=== PATIENT | female | born 1940 | race Caucasian/White ===

== ENCOUNTER 2019-03-27 13:10 | Observation (INO) | payer OTHER ==
[2019-03-27] MEDS ORDERED: ONDANSETRON 4 MG/2 ML VIAL ONE (14:07)
[2019-03-27 14:10] LABS: Absolute Lymphocytes (CBC) 0.6 K/uL (0.7-4.9); Basophils % 0.4 % (0-1.3); Hematocrit 32.4 % (36.0-45.0); Lymphocytes % 9.8 % (15.3-44.8); MPV 6.5 fL (7.6-11.3); RBC Red Blood Cell Count 3.58 M/uL (3.86-4.86)
--- NOTE | 2019-03-27 14:10 | RAD REPORT ---
EXAM DESCRIPTION: RAD - Chest Single View - 03/27/2019 1:44 pm CLINICAL HISTORY: Chest pain COMPARISON: September 2016 TECHNIQUE: AP portable chest image was obtained 1333 hours . FINDINGS: Lungs are clear. Heart and vasculature are normal. No measurable pleural effusion and no p neumothorax. Costophrenic angle blunting similar to comparison imaging. Sternotomy wires are in place . No acute bony abnormality seen. No acute aortic findings suspected. IMPRESSION: No acute cardiopulmonary process. No significant change to the chest from September 2016.
--- NOTE | 2019-03-27 14:15 | RAD REPORT ---
EXAM DESCRIPTION: CT - Head Brain Wo Cont - 03/27/2019 2:00 pm CLINICAL HISTORY: Syncope, transient alteration of awareness COMPARISON: None. TECHNIQUE: Axial 5 mm thick images of the head were obtained without IV contrast. All CT scans are performed using dose optimization technique as appropriate and may include automated exposure control or mA/KV adjustment according to patient size. FINDINGS: No intracranial hemorrhage, mass, edema or shift of mid-line structures. No acute cortical based infarction. No cortical edema or sulcal effacement. Prominent atrophy and chronic ischemic maninder nges are present. Old infarction changes are present in the deep periventricular white matter of the right frontal lobe extending into the basal ganglia. Ventricles are in proportion to volume loss. The intracranial findings are similar to comparison. Very dense arterial tree calcifications are present. Mastoid air cells and visualized portions of the paranasal sinuses are clear. No acute bony findings. IMPRESSION: Negative noncontrast CT head examination for acute finding. Atrophy and chronic ischemic changes match the 2017 study.
[2019-03-27 14:20] LABS: Protime INR 1.13
[2019-03-27 14:26] LABS: ALT/SGPT 8 U/L (12-78); AST/SGOT 11 U/L (15-37); Albumin 3.3 g/dL (3.4-5.0); Alkaline Phosphatase 90 U/L (45-117); BUN Blood Urea Nitrogen 17 mg/dL (7-18); Bicarbonate 23 mmol/L (21-32); Bilirubin Direct 0.2 mg/dL (0-0.2); Bilirubin Total 0.7 mg/dL (0.2-1.0); Glucose Level 146 mg/dL (74-106); Magnesium 1.9 mg/dL (1.8-2.4); NT PRO-BNP 484 pg/mL (<450); Sodium Level 138 mmol/L (136-145); Troponin (Emerg Dept Use Only) < 0.02 ng/mL (0.0-0.045)
--- NOTE | 2019-03-27 15:24 | ER ---
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 Transition of care: patient was not received from another setting of care. Onset of symptoms was March 27, 2019. Risk Assessment: Do you want to hurt yourself or someone else? Patient reports no desire to harm self or others. Initial Sepsis Screen: Does the patient meet any 2 criteria? No. Patient's initial sepsis screen is negative. Does the patient have a suspected source of infection? No. Patient's initial sepsis screen is negative. Care prior to arrival: Glucose check: 136. 13:20 Method Of Arrival: EMS: [facility] iw 13:20 Acuity: JARED 3 iw Triage Assessment: 19:38 Neuro: Reports. 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 - Social history:: Smoking status: Patient/guardian denies using tobacco. - Ebola Screening: : Patient negative for fever greater than or equal to 101.5 degrees Fahrenheit, and additional compatible Ebola Virus Disease symptoms Patient denies exposure to infectious person Patient denies travel to an Ebola-affected area in the 21 days before illness onset No symptoms or risks identified at this time. Screenin:34 Abuse screen: Denies threats or abuse. Denies injuries from another. Nutritional ak1 screening: No deficits noted. Tuberculosis screening: No symptoms or risk factors identified. Fall Risk None identified. Assessment: 13:30 General: Appears in no apparent distress. uncomfortable, Behavior is calm, cooperative, jl7 appropriate for age. Pain: Denies pain. Neuro: Level of Consciousness is awake, alert, obeys commands, Oriented to person, place, time, situation. Cardiovascular: Patient's skin is warm and dry. Rhythm is regular. Respiratory: Airway is patent Respiratory effort is even, unlabored, Respiratory pattern is regular, symmetrical, Denies shortness of breath. GI: No signs and/or symptoms were reported involving the gastrointestinal system. : No signs and/or symptoms were reported regarding the genitourinary system. EENT: No signs and/or symptoms were reported regarding the EENT system. Derm: Skin is pink, warm \T\ dry. Musculoskeletal: No signs and/or symptoms reported regarding the musculoskeletal system. 14:01 GI: Pt is actively vomiting bile, Informed Dr Bryson, medication order received. sv 14:30 Reassessment: Patient states feeling better. Patient states symptoms have improved. jl7 15:30 Reassessment: Patient appears in no apparent distress at this time. No changes from jl7 previously documented assessment. Patient and/or family updated on plan of care and expected duration. Pain level reassessed. Patient is alert, oriented x 3, equal unlabored respirations, skin warm/dry/pink. Patient denies pain at this time. Vital Signs: 13:26 BP 120 / 55; Pulse 84; Resp 16 S; Temp 96.9(TE); Pulse Ox 99% on R/A; Weight 72.57 kg; iw Height 5 ft. 2 in. (157.48 cm); Pain 0/10; 14:48 BP 129 / 38; Pulse 69; Resp 18; Pulse Ox 100% ; sv 15:30 BP 130 / 70; Pulse 66; Resp 14 S; Pulse Ox 100% on R/A; Pain 0/10; jl7 16:00 BP 130 / 70; Pulse 65; Resp 15; Pulse Ox 100% ; sv 17:00 BP 139 / 41; Pulse 62; Resp 18; Pulse Ox 99% ; sv 18:00 BP 126 / 57; Pulse 67; Resp 14; Pulse Ox 100% ; sv 19:39 BP 134 / 64; Pulse 71; Resp 14; Temp 97; Pulse Ox 99% on R/A; ak1 13:26 Body Mass Index 29.26 (72.57 kg, 157.48 cm) iw ED Course: 13:18 Patient arrived in ED. iw 13:20 Gerardo Bryson MD is Attending Physician. kdr 13:25 Triage completed. iw 13:26 Arm band placed on. iw 13:39 Kaya Gray RN is Primary Nurse. jl7 13:46 XRAY Chest (1 view) In Process Unspecified. EDMS 14:02 CT Head Brain wo Cont In Process Unspecified. EDMS 14:25 EKG done, by install technician. reviewed by Gerardo Bryson MD. 3 15:22 Vinnie Stallworth MD is Hospitalizing Provider. kdr 19:34 Patient has correct armband on for positive identification. Bed in low position. Call ak1 light in reach. Side rails up X 1. Adult w/ patient. teacher of family and consumer science on. Pulse ox on. NIBP on. 19:34 No provider procedures requiring assistance completed. Patient admitted, IV remains in ak1 place. 22g to the left wrist. Administered Medications: 14:05 Drug: Zofran 4 mg Route: IVP; Site: left wrist; sv 19:31 Follow up: Response: No adverse reaction ak1 Point of Care Testing: Blood Glucose: 16:29 Blood Glucose: 103 mg/dL; jl7 Ranges: Outcome: 15:23 Decision to Hospitalize by Provider. kdr 19:38 Admitted to Med/surg accompanied by tech, via wheelchair, room 203, with chart, Report ak1 called to Erika 19:38 Condition: good 19:38 Instructed on the need for admit. 19:57 Patient left the ED. ak1 Signatures: Dispatcher [employer] EDAbbey Mcpherson RN CORAZON Gerardo Bryson MD MD kdr Coby Barr RN RN iw Silvia Augustine RN RN ak1 Kaya Gray RN RN jl7 Johanne Hercules 3 Corrections: (The following items were deleted from the chart) 13:32 13:26 BP 120 / 55; Pulse 84bpm; Resp 16bpm; Spontaneous; Pulse Ox 99% RA; 72.57 kg; iw Height 5 ft. 2 in.; BMI: 29.2; Pain 0/10; iw
--- NOTE | 2019-03-27 15:24 | EDPHYS ---
Physician Documentation [facility] Name: Rosalind Godinez Age: 78 yrs Sex: Female : 1940 Arrival Date: 03/27/2019 Time: 13:18 Bed 8 Private MD: ED Physician Gerardo Bryson HPI: 03/27 18:21 This 78 yrs old Female presents to ER via EMS with complaints of Syncope. kdr 18:21 The patient has experienced syncope, became unresponsive. Onset: The symptoms/episode kdr began/occurred acutely, suddenly, just prior to arrival. Duration: This was a single episode, that lasted 45 second(s). Context: the episode(s) was witnessed, by a bystander, occurred nail salon, occurred while the patient was Just prior to the episode the patient experienced no apparent symptoms. Associated injury: The patient did not suffer any apparent associated injury. Associated signs and symptoms: The patient has no apparent associated signs or symptoms. Current symptoms: Currently, the patient is not experiencing any symptoms, the patient feels back to baseline. May have had similar episode in 2017. The patient has not recently seen a physician. 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 - Social history:: Smoking status: Patient/guardian denies using tobacco. - Ebola Screening: : Patient negative for fever greater than or equal to 101.5 degrees Fahrenheit, and additional compatible Ebola Virus Disease symptoms Patient denies exposure to infectious person Patient denies travel to an Ebola-affected area in the 21 days before illness onset No symptoms or risks identified at this time. ROS: 18:21 Constitutional: Negative for fever, chills, and weight loss, Eyes: Negative for injury, kdr pain, redness, and discharge, ENT: Negative for injury, pain, and discharge, Neck: Negative for injury, pain, and swelling, Cardiovascular: Negative for chest pain, palpitations, and edema, Respiratory: Negative for shortness of breath, cough, wheezing, and pleuritic chest pain, Abdomen/GI: Negative for abdominal pain, nausea, vomiting, diarrhea, and constipation, Back: Negative for injury and pain, : Negative for injury, bleeding, discharge, and swelling, MS/Extremity: Negative for injury and deformity, Skin: Negative for injury, rash, and discoloration, Psych: Negative for depression, anxiety, suicide ideation, homicidal ideation, and hallucinations, Allergy/Immunology: Negative for hives, rash, and allergies, Endocrine: Negative for neck swelling, polydipsia, polyuria, polyphagia, and marked weight changes, Hematologic/Lymphatic: Negative for swollen nodes, abnormal bleeding, and unusual bruising. 18:21 Neuro: Positive for loss of consciousness, syncope, Negative for altered mental status, headache, hearing loss, numbness, seizure activity, speech changes, weakness. Exam: 18:21 Constitutional: This is a well developed, well nourished patient who is awake, alert, kdr and in no acute distress. Head/Face: Normocephalic, atraumatic. Eyes: Pupils equal round and reactive to light, extra-ocular motions intact. Lids and lashes normal. Conjunctiva and sclera are non-icteric and not injected. Cornea within normal limits. Periorbital areas with no swelling, redness, or edema. Neck: Trachea midline, no thyromegaly or masses palpated, and no cervical lymphadenopathy. Supple, full range of motion without nuchal rigidity, or vertebral point tenderness. No Meningismus. Chest/axilla: Normal chest wall appearance and motion. Nontender with no deformity. No lesions are appreciated. Cardiovascular: Regular rate and rhythm with a normal S1 and S2. No gallops, murmurs, or rubs. Normal PMI, no JVD. No pulse deficits. Respiratory: Lungs have equal breath sounds bilaterally, clear to auscultation and percussion. No rales, rhonchi or wheezes noted. No increased work of breathing, no retractions or nasal flaring. Abdomen/GI: Soft, non-tender, with normal bowel sounds. No distension or tympany. No guarding or rebound. No evidence of tenderness throughout. Back: No spinal tenderness. No costovertebral tenderness. Full range of motion. Skin: Warm, dry with normal turgor. Normal color with no rashes, no lesions, and no evidence of cellulitis. MS/ Extremity: Pulses equal, no cyanosis. Neurovascular intact. Full, normal range of motion. Neuro: Awake and alert, GCS 15, oriented to person, place, time, and situation. Cranial nerves II-XII grossly intact. Motor strength 5/5 in all extremities. Sensory grossly intact. Cerebellar exam normal. Normal gait. Psych: Awake, alert, with orientation to person, place and time. Behavior, mood, and affect are within normal limits. Vital Signs: 13:26 BP 120 / 55; Pulse 84; Resp 16 S; Temp 96.9(TE); Pulse Ox 99% on R/A; Weight 72.57 kg; iw Height 5 ft. 2 in. (157.48 cm); Pain 0/10; 14:48 BP 129 / 38; Pulse 69; Resp 18; Pulse Ox 100% ; sv 15:30 BP 130 / 70; Pulse 66; Resp 14 S; Pulse Ox 100% on R/A; Pain 0/10; jl7 16:00 BP 130 / 70; Pulse 65; Resp 15; Pulse Ox 100% ; sv 17:00 BP 139 / 41; Pulse 62; Resp 18; Pulse Ox 99% ; sv 18:00 BP 126 / 57; Pulse 67; Resp 14; Pulse Ox 100% ; sv 19:39 BP 134 / 64; Pulse 71; Resp 14; Temp 97; Pulse Ox 99% on R/A; ak1 13:26 Body Mass Index 29.26 (72.57 kg, 157.48 cm) iw MDM: 15:23 Patient medically screened. kdr 18:21 Data reviewed: vital signs, nurses notes, lab test result(s), radiologic studies. kdr Counseling: I had a detailed discussion with the patient and/or guardian regarding: the historical points, exam findings, and any diagnostic results supporting the discharge/admit diagnosis, lab results, radiology results, the need for further work-up and treatment in the hospital. Physician consultation: Vinnie Stallworth MD regarding admission, to the telemetry unit. Admission orders: after a detailed discussion of the patient's condition and case, the admit orders are written by me. 03/27 13:20 Order name: Basic Metabolic Panel; Complete Time: 15:14 kdr 03/27 13:20 Order name: CBC with Diff; Complete Time: 15:14 kdr 03/27 13:20 Order name: LFT's; Complete Time: 15:14 kdr 03/27 13:20 Order name: Magnesium; Complete Time: 15:14 kdr 03/27 13:20 Order name: NT PRO-BNP; Complete Time: 15:14 kdr 03/27 13:20 Order name: PT-INR; Complete Time: 15:14 kdr 03/27 13:20 Order name: Troponin (emerg Dept Use Only); Complete Time: 15:14 kdr 03/27 13:20 Order name: XRAY Chest (1 view); Complete Time: 15:14 kdr 03/27 13:38 Order name: CT Head Brain wo Cont; Complete Time: 15:14 kdr 03/27 15:51 Order name: Basic Metabolic Panel EDMS 03/27 15:51 Order name: Basic Metabolic Panel EDMS 03/27 15:51 Order name: CBC with Automated Diff EDMS 03/27 15:51 Order name: CBC with Automated Diff EDMS 03/27 16:39 Order name: Glucose, Ancillary Testing EDMS 03/27 13:20 Order name: EKG; Complete Time: 13:21 kdr 03/27 13:20 Order name: Cardiac monitoring; Complete Time: 14:31 kdr 03/27 13:20 Order name: EKG - Nurse/Tech; Complete Time: 14:31 kdr 03/27 13:20 Order name: IV Saline Lock; Complete Time: 14:31 kdr 03/27 13:20 Order name: Labs collected and sent; Complete Time: 14:30 kdr 03/27 13:20 Order name: O2 Per Protocol; Complete Time: 14:31 kdr 03/27 13:20 Order name: O2 Sat Monitoring; Complete Time: 14:31 kdr 03/27 15:50 Order name: CONS Physician Consult EDNE 03/27 15:50 Order name: Regular EDMS 03/27 15:50 Order name: EKG Electrocardiogram EDMS 03/27 15:50 Order name: EKG Electrocardiogram EDMS 03/27 15:51 Order name: EKG Electrocardiogram EDMS 03/27 15:51 Order name: EKG Electrocardiogram EDMS 03/27 16:53 Order name: Echo with Doppler EDMS Administered Medications: 14:05 Drug: Zofran 4 mg Route: IVP; Site: left wrist; sv 19:31 Follow up: Response: No adverse reaction ak1 Point of Care Testing: Blood Glucose: 16:29 Blood Glucose: 103 mg/dL; jl7 Ranges: Critical Glucose Levels:Adult <50 mg/dl or >400 mg/dl <40 mg/dl or >180 mg/dl Disposition: 03/27/19 15:23 Hospitalization ordered by Vinnie Stallworth for Observation. Preliminary diagnosis is Syncope and collapse. - Bed requested for Telemetry/MedSurg (observation). - Status is Observation. ak1 - Condition is Fair. - Problem is an acute exacerbation. - Symptoms are resolved. UTI on Admission? No Signatures: Dispatcher [employer] EDNE Abbey Medina, RN RN Gerardo Hair MD MD [facility] Coby Barr RN RN Yanna Prasad RN RN tl1 Silvia Augustine, RN RN ak1 Corrections: (The following items were deleted from the chart) 17:44 15:51 EKG Electrocardiogram ordered. [facility] 18:57 15:23 Hospitalization Ordered by Vinnie Stallworth MD for Observation. Preliminary diagnosis tl1 is Syncope and collapse. Bed requested for Telemetry/MedSurg (observation). Status is Observation. Condition is Fair. Problem is an acute exacerbation. Symptoms are resolved. UTI on Admission? No. kdr 19:57 18:57 03/27/2019 15:23 Hospitalization Ordered by Vinnie Stallworth MD for Observation. ak1 Preliminary diagnosis is Syncope and collapse. Bed requested for Telemetry/MedSurg (observation). Status is Observation. Condition is Fair. Problem is an acute exacerbation. Symptoms are resolved. UTI on Admission? No. tl1
[2019-03-27] MEDS ORDERED: ACETAMINOPHEN 500 MG TAB PO PRN (15:42)
[2019-03-27] MEDS ORDERED: ONDANSETRON 4 MG/2 ML VIAL IV PRN (15:42)
--- NOTE | 2019-03-27 16:18 | EKG ---
Test Date: 2019-03-27 Test Time: 14:14:29 District Claims Manager: ROSARIO MEASUREMENT RESULTS: Intervals: Rate: 78 WA: 218 QRSD: 60 QT: 380 QTc: 433 [place]: P: 39 WA: 218 QRS: -38 T: 59 INTERPRETIVE STATEMENTS: Sinus rhythm with 1st degree AV block Left axis deviation Low voltage QRS Cannot rule out Anterior infarct, age undetermined Abnormal ECG Compared to ECG 10/14/2016 06:31:50 First degree AV block now present Low QRS voltage now present Accelerated junctional rhythm no longer present Left ventricular hypertrophy no longer present Myocardial infarct finding still present Electronically Signed On 03-27-19 16:17:28 [employer] by Lavell Rush
[2019-03-27 20:39] VITALS: BMI 29.2
--- NOTE | 2019-03-27 21:44 | CON ---
Ms. Godinez is 78. She had an episode of loss of consciousness. History Of Present Illness: The patient was sitting in a nail salon. She felt fine when she went in . She had her nails done, was getting close to it being done and she told the person she was feeling extra tired. The patient remembers feeling tired. No other symptoms that would suggest an aura. N o palpitations or chest pain or nausea. She lost consciousness for about 30 seconds, awake, and she knew right where she was. There was no injury. No tongue biting. No bladder or bowel incontinence. Her vital signs have been stable ever since arriving at the hospital. There has been no arrhythmia on telemetry. She has a history of a stroke in 2016, and there was no vascular disease that caused it. She has never been diagnosed with AFib. 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 She has had ovarian cancer, and surgery for that. Never had any vascular disease. Denies any history o f diabetes or dyslipidemia. Denies having chest pain. Physical Examination: General: She is alert, oriented, pleasant. She is not in distress. She appears to be her stated ag e of 78. HEENT: Unremarkable. There is no carotid bruit. Lungs: Clear. Cardiac: Rather unremarkable. There is no murmur, rub or gallop. Abdomen: Soft. Vital Signs: Her blood pressure was 120/55, pulse 84, temperature 96.9, pulse ox 99% on room air. S he is 72.6 kg, 5 feet 2 inches tall. Impression: My impression is that the episode of syncope is undiagnosed, it could of course be a sei zure or arrhythmia, simply low blood pressure from sitting in a nail salon. There could have been fu mes that contributed to it. She had one other episode of syncope associated with smelling natural ga s couple years ago. If we monitor her rhythm overnight, and I do not see anything that would cause s yncope, doing echo and I think we can safely say that she could be discharged for outpatient workup a nd perhaps wear a 30-day event monitor. Neurological consultation will probably be obtained too and I would imagine they would want an electroencephalogram. MALENA/DENISE Voice ID: [id number] Report ID: [id number]
[2019-03-27 21:53] LABS: Urine Appearance CLOUDY; Urine Bilirubin 2+ (NEG); Urine Blood NEGATIVE (NEG); Urine Color DK YELLOW; Urine Glucose NEGATIVE (NEG); Urine Protein NEGATIVE (NEG); Urine Specific Gravity >=1.030 (1.005-1.030)
[2019-03-27 21:54] LABS: Urine Microscopic Reflex ORDER UMIC
[2019-03-27 22:06] LABS: Urine Bacteria <20 /HPF (<20); Urine Culture Reflex Order NOT NEEDED; Urine Mucus 1+ /HPF (NONE SEEN); Urine RBC <5 /HPF (NONE SEEN)
[2019-03-28 06:12] LABS: Absolute Lymphocytes (CBC) 0.7 K/uL (0.7-4.9); Basophils % 0.2 % (0-1.3); Hematocrit 27.2 % (36.0-45.0); Lymphocytes % 10.9 % (15.3-44.8); MPV 6.5 fL (7.6-11.3); RBC Red Blood Cell Count 3.04 M/uL (3.86-4.86)
[2019-03-28 06:27] LABS: Potassium 4.2 mmol/L (3.5-5.1)
[2019-03-28] MEDS ORDERED: PNEUMOCOCCAL VACCINE 0.5 ML IMVAC ONE (08:00)
[2019-03-28 08:47] VITALS: O2SAT 98
[2019-03-28] MEDS ORDERED: LOSARTAN POTASSIUM 50 MG TABLET PO SCH (09:00)
[2019-03-28] MEDS ORDERED: ASPIRIN EC 81 MG TAB PO SCH (09:00)
[2019-03-28 09:16] VITALS: TEMP 97.6
--- NOTE | 2019-03-28 11:55 | ECHO ---
HEIGHT: 5 ft 2 in WEIGHT: 160 lb 0 oz DATE OF STUDY: 03/28/[address]: Lavell Rush MD 2-DIMENSIONAL: YES M.MODE: YES DOPPLER: YES COLOR FLOW: YES TDS: YES PORTABLE: NO DEFINITY: NO BUBBLE STUDY: NO DIAGNOSIS: SYNCOPE CARDIAC HISTORY: CATHERIZATION: NO SURGERY: NO PROSTHETIC VALVE: NO PACEMAKER: NO MEASUREMENTS (cm) DIASTOLIC (NORMALS) SYSTOLIC (NORMALS) IVSd 1.0 (0.6-1.2) LA Diam 2.5 (1.9-4.0) LVEF 55% LVIDd 2.6 (3.5-5.7) LVIDs 1.9 (2.0-3.5) %FS 27% LVPWd 1.0 (0.6-1.2) Ao Diam 2.7 (2.0-3.7) 2 DIMENSIONAL ASSESSMENT: RIGHT ATRIUM: NORMAL LEFT ATRIUM: NORMAL RIGHT VENTRICLE: NORMAL LEFT VENTRICLE: NORMAL TRICUSPID VALVE: NORMAL MITRAL VALVE: MITRAL ANNULAR CALCIFICATION PULMONIC VALVE: NORMAL AORTIC VALVE: SCLEROSIS PERICARDIAL EFFUSION: NONE AORTIC ROOT: NORMAL LEFT VENTRICULAR WALL MOTION: NORMAL DOPPLER/COLOR FLOW: NORMAL COMMENTS: MITRAL ANNULAR CALCIFICATION. AORTIC SCLEROSIS. NORMAL LEFT VENTRICULAR EJECTION FRACTION. NO EFFUSION. NO WALL MOTION ABNORMALITY. TECHNICALLY DIFFICULT STUDY. TECHNOLOGIST: Josette RODRIGUES
[2019-03-28 14:06] VITALS: BP 128/56
--- NOTE | 2019-03-28 17:24 | EKG ---
Test Date: 2019-03-28 Test Time: 07:41:22 Site Engineer: MERRILL MEASUREMENT RESULTS: Intervals: Rate: 73 AL: 230 QRSD: 74 QT: 408 QTc: 449 [place]: P: 94 AL: 230 QRS: -53 T: 26 INTERPRETIVE STATEMENTS: Sinus rhythm with 1st degree AV block Left anterior fascicular block Inferior infarct, age undetermined Cannot rule out Anterior infarct, age undetermined Abnormal ECG Compared to ECG 03/27/2019 14:14:29 Left anterior fascicular block now present Left-axis deviation no longer present Myocardial infarct finding still present Electronically Signed On 03-28-19 17:21:47 DIVING FISHER by Roger Stokes
--- NOTE | 2019-03-28 22:11 | CON ---
Reason For Consultation: Consultation called because of brief syncopal episode. History Of Present Illness: Ms. Godinez is a 78-year-old patient with hypertension and stroke with vincent y good recovery, who was admitted after a brief syncopal episode. She was getting her nails done; wh en she completed her pedicure and manicure and was about to get her hair shampooed, when she suddenly slumped over in the chair and was unresponsive for about 5 seconds. There was no tongue biting. No bowel or bladder loss. No tonic-clonic activity of the arms and legs. She had little confusion on regaining consciousness. She was brought to [facility] and head CT scan identified no acute ischemic or hemorrhagic changes. There was prominent atrophy from chronic small-vessel ischemic dis ease. There was an old stroke noted in the right frontal lobe extending into the basal ganglia regio n. Echocardiogram showed ejection fraction of 55%, aortic sclerosis, mitral annular calcification, o therwise unremarkable. The patient denies a prior history of syncope or seizures. Past Medical History: As indicated and including thymus cancer, uterine cancer, and ovarian cancer. Past Surgical History: Removal of the thymus and hysterectomy. Allergies: CODEINE AND KEFLEX. Family History: Noncontributory. Medications: In hospital; aspirin 81 mg daily, Zofran 4 mg as needed, Cozaar 25 mg daily, extra-stre ngth Tylenol as needed. Review of Systems: No recent fevers, chills, nausea, vomiting. No myalgias, arthralgias, rash, headache, weight change, psychiatric problems. Physical Examination: Vital Signs: Blood pressure 128/56, pulse 79, respiratory rate 18, temperature 97.6, oxygen saturati on 95% room air. Weight 106 pounds, height 5 feet 2 inches. General: Ms. Godinez is sitting in bed actually with her at the bedside, ready to be discharge d home. She is in no acute distress. HEENT: She is normocephalic, atraumatic. Sclerae anicteric. Oropharynx is pink and moist. Neck: Supple. Chest: Clear. Heart: Regular. Extremities: Show no edema or cyanosis. Neurologic: She has no focal neurologic deficits in terms of cranial nerves, motor, coordination, ba lindsay, and gait despite her chronic frontal lobe stroke. Reflexes are symmetric. Laboratory Studies: Complete blood count with differential was remarkable for mildly low hemoglobin of 9.4, hematocrit of 27, platelets 216, white blood cell count normal at 6.3. Coagulation panel neri ws INR of 1.13. Electrolyte panel was essentially unremarkable with elevated glucose of 143, down to 103. Calcium and magnesium normal. ALT and AST slightly low at 11 and 8. Urinalysis showed 2+ reta irubin, 10-20 epithelial cells. Assessment: Ms. Godinez is a 78-year-old patient with a brief syncopal episode of unclear etiology. S he actually denied any warning prior to the event, but did not have any tonic or clonic activity. He r workup was negative for an acute ischemic or hemorrhagic stroke, and she is back to her baseline. Plan: 1.Consider ambulatory EEG monitoring given her history of stroke. There is a possibility that she m ay have had a brief seizure, and ambulatory EEG monitoring may help to detect interictal epileptiform discharges. 2.We will hold off on any antiepileptic medications. 3.Should continue with aspirin 81 mg daily. Continue with hypertension management and have lipid pa carlos for stratifying the need for high-dose statin, but may likely take atorvastatin 20 mg at night. 4.After discharge, follow up with Dr. Ann[facility] clinic 1 month later for further evaluation includi shabbir ambulatory monitoring study. TANYA/DENISE Voice ID: [id number] Report ID: [id number]
--- NOTE | 2019-03-29 00:03 | HP ---
Date of Admission: 03/27/2019 Chief Complaint: Syncope. History Of Present Illness: A 78-year-old female while in [employer] was found to have syncope las ting for 30 minutes. The patient was brought to the emergency room. The patient had extensive evalu ation including CAT scan of the head. This was negative. The patient, however, was fully alert at t he time of transfer to floor. The patient is admitted for observation. Past Medical History: Positive for old CVA, hypertension, uterine ovarian cancer, and thymus cancer. Surgical History: Hysterectomy, thymectomy. Allergies: CODEINE AND KEFLEX. Family History: Noncontributory. Personal History: Nonsmoker. Medications: Home medicines, losartan, aspirin. Review of Systems: No chest pain or shortness of breath. Physical Examination: General: Revealed a 78-year-old female, alert for her age. HEENT: Negative. Neck: Supple, JVD negative. Chest: Clear. Heart: Regular. Abdomen: Soft. Extremities: No edema. Neurological: Negative. Laboratory Data: White count normal, hemoglobin 11.1. Chem profile; BUN, creatinine normal. Assessment: 1.Episode of syncope. 2.History of old cerebrovascular accident. 3.History of multiple cancers. Plan: The patient is seen by Cardiology Service and they do not think it was of any cardiac origin, may have been vasovagal syncope. However, there is Neurology consult for which I am waiting. ERI Voice ID: [id number]
--- NOTE | 2019-03-29 01:25 | CON ---
Date of Consultation: 03/28/2019 Reason For Consultation: Syncope. History Of Present Illness: Ms. Godinez is a 78-year-old white woman without any significant past card iac history. She has a history of hypertension. She has a history of multiple cancers of the thymus gland, ovarian cancer, as well as uterine cancer; all of those have been treated in the past. She w as having her nails done yesterday and does not remember what happened but she was syncopal. There w ere no symptoms before her syncope and there were no symptoms after her syncope. She was not postict al. There were no notes of nausea, vomiting, diaphoresis, chest pain, PND, orthopnea, pedal edema, p alpitation. All her workup so far have been negative. She has had a negative carotid and echo in . A CT of her head was negative. Her EKG showed low voltage. Her BNP was 484. Chest x-ray was n egative. Creatinine was negative. Troponin was negative. Glucose was 146. Past Medical History: As stated above. Allergies: SHE IS ALLERGIC TO CODEINE AND CEPHALEXIN. Review of Systems: Negative. Social History: Negative. Family History: Negative. Medications: At home include aspirin and lisinopril. Physical Examination: General: Ms. Gdoinez appeared to be anxious, wanting to go home. Vital Signs: Stable. She was afebrile. She was in a sinus rhythm. HEENT: Negative. Neck: Supple with no bruit. Chest: Clear to auscultation and percussion. Cardiac: Revealed a regular rhythm and rate. No murmurs, gallops, or rubs. Abdomen: Benign. Extremities: Revealed no clubbing, cyanosis, or edema. Diagnostic Data: As stated earlier. Impression And Plan: 1.Syncope most likely secondary to orthostatic hypotension. 2.History of hypertension. 3.History of multiple cancers in the thymus, ovarian, and uterine area. An echocardiogram is pending. We will see what that shows prior to making final decisions. Carotids have been negative in the past. Her CT of her head was negative. EKG is negative. Troponin is neg ative. Urology consultation has been obtained and I think if her echo is normal and it is okay with Dr. Stallworth and Neurology, she can go home and if this happens again, I will see her in the office. NB/ALVINL Voice ID: [id number] Report ID: [id number]
--- OUTSIDE RECORDS SUMMARY | 2019-04-01 01:08 | XMS REPORT ---
:1940 [facility] Address [address] Zamorano [address] [place] [address] Care Team Providers Name Role Phone KLEBER ORTIZ Unavailable Unavailable MARIA EUGENIA BRASHER Unavailable Unavailable Problems This patient has no known problems. Allergies, Adverse Reactions, Alerts This patient has no known allergies or adverse reactions. Medications This patient has no known medications. Results Test Description Test Time Test Comments Text Results Atomic Results Result Comments TISSUE EXAM 2017-02-10 Surgical Pathology Report 12:35:00 Case: [id number] Authorizing Provider: Jaida Singer MD Collected: 02/07/2017 1122 Ordering Location: [facility] Diagnostic Imaging Received: 02/07/2017 1139 Pathologist: Clau Lundberg MD Specimen: Lung, Left LUNG, LEFT, BIOPSY: - BENIGN LUNG TISSUE WITH TYPE 2 PNEUMOCYTE HYPERPLASIA AND CHRONIC INFLAMMATION - NEGATIVE FOR ACID FAST BACILLI AND FUNGUS ON AFB AND GMS STAINED SECTIONS Signing Pathologist Direct Phone Line: [phone] signed by Clau Lundberg MD on 02/10/2017 at 12:35 PMAL/[id number], [id number] f3Clcmit of thymus and lung nodule Left lungThe specimen is received in formalin labeled with the patient's name, medical record number and "lung, left" and consists of multiple lopez-white core biopsy tissues ranging in size from less than 1 mm to 1.1 cm. The tissue is submitted entirely in cassette A. AL/ewSections show a few scanty pieces of lung tissue. The lung tissue shows alveoli with type 2 pneumocyte hyperplasia. Scattered chronic inflammatory cells including lymphocytes and plasma cells are appreciated. A rare multinucleated giant cell is seen. No malignancy is detected. GMS stain is negative for fungus. AFB stain is negative for acid fast bacilli.[facility], Department of Pathology, [facility] [place] [address], [facility], [facility], [address] [place] [address], [facility], [facility] of [facility]ology, [address] [place] [address], BIOPSY, 2017-02-07 Reason for FINAL REPORT PATIENT ID: LUNG 16:15:00 Exam:->[id number]-guided left lung nodule biopsy, DOSE REDUCTION: The examination was performed according to departmental dose-optimization program which includes automated exposure control, adjustment of the mA and/or kV according to patient size and/or use of iterative reconstruction technique. Clinical History: History of thymic cancer Dross Skimmer: Mary Ann Conscious sedation: Versed 1 mg, fentanyl 50 mcg, (Administered after informed consent was obtained) Vital signs were monitored throughout the procedure by a nurse, and remained stable. Physician patient qlao-cx-vwdi intra-service time was 30 minutes. Local anesthesia: 2% lidocaine Technique: Informed written consent for the procedure was obtained. With the patient supine, the area was scanned. The skin over the 1.7 cm left upper lobe nodule was prepped and draped in the usual sterile manner. Following local anesthesia a 19G coaxial needle was advanced into the abnormality under CT guidance. Using a 20G core biopsy needle, 3 core biopsy samples were obtained. Postprocedure CT evaluation of the area revealed small amount of expected perilesional hemorrhage. No pneumothorax seen. Patient tolerated the procedure well and remained hemodynamically stable throughout. IMPRESSION: Successful and uncomplicated CT-guided core biopsy of a left upper lobe nodule. Signed: Maricruz Reese MDReport Verified Date/Time: 02/07/2017 16:15:33 Reading Location: [facility] Radiology Reading Room , CHEST, 1 2017-02-07 Reason for FINAL REPORT PATIENT ID: VIEW, NON DEPT 15:47:00 exam:->s/p left [id number] Comparison: Chest x-ray lung mass performed earlier on the same day biopsyShould this TECHNIQUE: Single view of the be performed at the chest FINDINGS: Status post bedside?->Yes recent biopsy of left lung nodule. No pneumothorax post procedure. No other significant change. Signed: Maricruz Reese MDReport Verified Date/Time: 02/07/2017 15:47:54 Reading Location: [facility] Radiology Reading Room , CHEST, 1 2017-02-07 Reason for FINAL REPORT PATIENT ID: VIEW, NON DEPT 14:31:00 exam:->s/p left [id number] Technique: Single view lung mass of the chest FINDINGS: Status biopsyShould this post recent biopsy of a left lung be performed at the nodule. No pneumothorax bedside?->Yes bilaterally. Lungs are grossly clear. Cardiac silhouette is enlarged. Thoracic aorta is ectatic. Signed: Maricruz Reese MDReport Verified Date/Time: 02/07/2017 14:31:06 Reading Location: [facility] Radiology Reading Room W/PLT COUNT & AUTO DIFFERENTIAL 2017-02-07 11:47:00 Test Item Value Reference Range Comments WHITE BLOOD CELL COUNT (BEAKER) (test mqoe=489) 5.8 K/ L 4.0-10.0 RED BLOOD CELL COUNT (BEAKER) (test smwp=150) 2.58 M/ L 4.00-5.00 HEMOGLOBIN (BEAKER) (test dzsf=003) 8.9 GM/DL 12.0-15.0 HEMATOCRIT (BEAKER) (test qcet=300) 26.0 % 36.0-45.0 MEAN CORPUSCULAR VOLUME (BEAKER) (test twdt=890) 100.7 fL 82.0-99.0 MEAN CORPUSCULAR HEMOGLOBIN (BEAKER) (test ahpq=835) 34.6 pg 27.0-33.0 MEAN CORPUSCULAR HEMOGLOBIN CONC (BEAKER) (test hcax=619) 34.4 GM/DL 32.0- 36.0 RED CELL DISTRIBUTION WIDTH (BEAKER) (test ngsm=117) 16.2 % 10.3-14.2 PLATELET COUNT (BEAKER) (test wslj=527) 187 K/CU MM 150-430 MEAN PLATELET VOLUME (BEAKER) (test ckjn=394) 6.7 fL 6.5-10.5 NUCLEATED RED BLOOD CELLS (BEAKER) (test btus=301) 0 /100 WBC 0-0 NEUTROPHILS RELATIVE PERCENT (BEAKER) (test sing=001) 66 % LYMPHOCYTES RELATIVE PERCENT (BEAKER) (test ntpt=747) 14 % MONOCYTES RELATIVE PERCENT (BEAKER) (test eybp=094) 16 % EOSINOPHILS RELATIVE PERCENT (BEAKER) (test sxvm=247) 3 % BASOPHILS RELATIVE PERCENT (BEAKER) (test ryab=535) 0 % NEUTROPHILS ABSOLUTE COUNT (BEAKER) (test nopx=178) 3.80 K/ L 1.80-8.00 LYMPHOCYTES ABSOLUTE COUNT (BEAKER) (test oipp=323) 0.80 K/ L 1.48-4.50 MONOCYTES ABSOLUTE COUNT (BEAKER) (test ifnz=580) 0.90 K/ L 0.00-1.30 EOSINOPHILS ABSOLUTE COUNT (BEAKER) (test edvy=802) 0.20 K/ L 0.00-0.50 BASOPHILS ABSOLUTE COUNT (BEAKER) (test tslt=676) 0.00 K/ L 0.00-0.20 (MANUAL DIFFERENTIAL)2017-02-07 11:47:00 Test Item Value Reference Range Comments TOTAL COUNTED (BEAKER) (test mvxg=4363) WBC MORPHOLOGY (BEAKER) (test qdem=205) Normal PLT MORPHOLOGY (BEAKER) (test guma=404) Normal MACROCYTES (BEAKER) (test xbws=169) 1+ few [id number] 09:42:00 Test Item Value Reference Range Comments PROTIME (BEAKER) (test goeo=563) 10.1 seconds 9.3-12.0 INR (BEAKER) (test ewxp=907) 1.0 <=5.9 PARTIAL THROMBOPLASTIN TIME (BEAKER) (test 20.8 seconds 23.0-35.0 jwyt=484) RECOMMENDED COUMADIN/WARFARIN INR THERAPY RANGESSTANDARD DOSE: 2.0 - 3.0 Includes: PROPHYLAXIS forvenous thrombosis, systemic embolization; TREATMENT for venous thrombosis and/or pulmonary embolus.HIGH RISK: Target INR is 2.5-3.5 for patients with mechanical heart valves.TISSUE [id number] 10:52: 00Surgical Pathology Report Case: [id number] Authorizing Provider: System, Provider Not In Ordering Provider: Provider, [facility] Diagnostic Imaging Collected: 07/06/2016 1155 Pathologist: Lillian Carter, Received: 2016 1241 Specimen: Mediastinum MEDIASTINUM, BIOPSY: -POORLY DIFFERENTIATED CARCINOMA, CONSISTENT WITH THYMIC CARCINOMA (SEE COMMENT) Signing Pathologist Direct Phone Line: [phone] morphologic findings along with the immunohistochemical profile are consistent with a thymic carcinoma. 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 Intradepartmental consultation was obtained: Dr. Louis [id number]; [id number], [address] x7Dwlsbhgncap mass, ovarian cancer, unspecified lateralityMediastinumThe specimen is received in fixative and designated as "tissue exam", consists of multiple pink-lopez tissue cores ranging in size from 0.2 to 1.3 cm in aggregate. All tissue fragments are submitted into A1. MG/plPerformedThefollowing special studies were performed on this case with appropriate and reactive controls and theinterpretation is incorporated in the diagnostic report above:AE1/AE3: CddpxzkjPF771: PositiveCD5: PositiveTTF-1: NegativeThe immunohistochemistry test was developed and its performance characteristicsdetermined by [facility], Pathology Laboratory. It has not been cleared or approved by the U.S. Food and Drug Administration. The FDA has determined that such clearance or approval isnot necessary. The test is used for clinical purposes. It should not be regarded as investigational or for research. This laboratory is certified under the Clinical Laboratory Improvement Amendments le4659 (CLIA-88) as qualified to perform high complexity clinical laboratory testing.[facility], Department of Pathology, [address] [place] [address], [facility], Department of Pathology , [address] [place] [address], [address] [facility], Department of Pathology, [facility] [place] [address], [id number] 09:32:00 Test Item Value Reference Range Comments PROTIME (BEAKER) (test jgjs=476) 10.4 seconds 9.3-12.0 INR (BEAKER) (test nbtc=088) 1.0 <=5.9 PARTIAL THROMBOPLASTIN TIME (BEAKER) (test 23.1 seconds 23.0-35.0 txou=680) RECOMMENDED COUMADIN/WARFARIN INR THERAPY RANGESSTANDARD DOSE: 2.0 - 3.0 Includes: PROPHYLAXIS forvenous thrombosis, systemic embolization; TREATMENT for venous thrombosis and/or pulmonary embolus.HIGH RISK: Target INR is 2.5-3.5 for patients with mechanical heart valves.CBC W/PLT COUNT & AUTO [id number] 09:18:00 Test Item Value Reference Range Comments WHITE BLOOD CELL COUNT (BEAKER) (test pnzy=494) 6.0 K/ L 4.0-10.0 RED BLOOD CELL COUNT (BEAKER) (test kjnh=854) 3.91 M/ L 4.00-5.00 HEMOGLOBIN (BEAKER) (test bstq=243) 11.1 GM/DL 12.0-15.0 HEMATOCRIT (BEAKER) (test jhmk=549) 33.2 % 36.0-45.0 MEAN CORPUSCULAR VOLUME (BEAKER) (test cxkq=953) 84.9 fL 82.0-99.0 MEAN CORPUSCULAR HEMOGLOBIN (BEAKER) (test 28.4 pg 27.0-33.0 fxxq=710) MEAN CORPUSCULAR HEMOGLOBIN CONC (BEAKER) (test 33.5 GM/DL 32.0-36.0 qwnj=950) RED CELL DISTRIBUTION WIDTH (BEAKER) (test 13.6 % 10.3-14.2 scda=099) PLATELET COUNT (BEAKER) (test uion=952) 301 K/CU MM 150-430 MEAN PLATELET VOLUME (BEAKER) (test ooop=098) 6.1 fL 6.5-10.5 NUCLEATED RED BLOOD CELLS (BEAKER) (test 0 /100 WBC 0-0 ocap=252) NEUTROPHILS RELATIVE PERCENT (BEAKER) (test 67 % alqe=506) LYMPHOCYTES RELATIVE PERCENT (BEAKER) (test 17 % picf=294) MONOCYTES RELATIVE PERCENT (BEAKER) (test 11 % fzes=120) EOSINOPHILS RELATIVE PERCENT (BEAKER) (test 4 % inou=841) BASOPHILS RELATIVE PERCENT (BEAKER) (test 0 % rdzj=344) NEUTROPHILS ABSOLUTE COUNT (BEAKER) (test 4.00 K/ L 1.80-8.00 oliq=358) LYMPHOCYTES ABSOLUTE COUNT (BEAKER) (test 1.00 K/ L 1.48-4.50 zhti=030) MONOCYTES ABSOLUTE COUNT (BEAKER) (test 0.70 K/ L 0.00-1.30 ywgy=623) EOSINOPHILS ABSOLUTE COUNT (BEAKER) (test 0.20 K/ L 0.00-0.50 zyso=861) BASOPHILS ABSOLUTE COUNT (BEAKER) (test 0.00 K/ L 0.00-0.20 irqt=249)
== END 2019-03-28 15:27 | disposition home or self-care (01) ==
LOC: ER 13:10 → ERHOLD 18:22 → 2ND 19:38
PROVIDERS: ADMIT Internal Medicine; ATTEND Internal Medicine
DX: R55 Syncope and collapse (principal); I10 Essential (primary) hypertension; Z86.73 Personal history of transient ischemic attack (TIA), and cerebral infarction without residual deficits; Z28.21 Immunization not carried out because of patient refusal
CPT/HCPCS: 93005 ×2; 93306; 85025 ×2; 80048 ×2; 36415; 83735; 85610; 82947; 80076; 84484; 83880; 70450; 71045; 96374; 99285; J2405; G0378 ×3; 81003; 81015; 90670

== ENCOUNTER 2019-09-19 20:23 | Emergency (ER) | payer OTHER ==
--- OUTSIDE RECORDS SUMMARY | 2019-09-19 20:26 | XMS REPORT ---
:1940 Author Organization [facility] t Address [address] [place] [address] Care Team Providers Name Role Phone JAX ORTIZ Unavailable Unavailable Shiloh BRASHER Unavailable Unavailable Problems This patient has no known problems. Allergies, Adverse Reactions, Alerts This patient has no known allergies or adverse reactions. Medications This patient has no known medications. 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 The tissue is submitted entirely in casset te A. AL/ewSections show a few sca nty pieces of lung tissue. The l luke tissue shows alveoli with ty pe 2 pneumocyte hyperplasia. Scat tered chronic inflammatory cells including lymphocytes and pl asma cells are appreciated. 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 No malignancy is detec ivan. GMS stain is negative for fu ngus. AFB stain is negative for a arron fast bacilli.[facility], Department of Pathology, [address] [facility], [place] [address], [facility] f [facility], [address] [place] [address], Qu. [facility], Department of Pathology, [address] [facility], [place] [address], CT, BIOPSY, 2017-02-07 Reason for FINAL REPORT PATIENT ID: LUNG 16:15:00 Exam:->[id number]-guided left carmelita ng nodule biopsy, DOSE REDUCTI ON: The examination was performe d according to departmental dose-optimization program wh ich includes automated exposure control, adjustment of the m A and/or kV according to patie nt size and/or use of iterative reconstruction technique. Clinical History: History of thymic cancer [place] [place] Mold Maker: Mary Ann Conscious sedation: Versed 1 mg, fentanyl 50 mcg, (Administer ed after informed consent was obtained) Vital signs were monitored throughout the procedure by a nurse, and remained stable. Physician patient ieyq-ah-poif intra-service time was 30 minutes. Local anesthesia: 2% lidocaine Technique: Informe d written consent for the proc edure was obtained. With the patie nt supine, the area was scanned . The skin over the 1.7 cm lef t upper lobe nodule was preppe d and draped in the usual sterile manner. Following local anesthesia a 19G coaxial nee dle was advanced into the abnorm ality under CT guidance. Using a 20G core biopsy needle, 3 core b iopsy samples were obtained. Postprocedure CT evaluation of the area revealed small amou nt of expected perilesional hemorr yecenia. No pneumothorax seen. Patien t tolerated the procedure well and remained hemodynamically sta ble throughout. IMPRESSION: Successful and uncomplicated CT-guided core biopsy of a l eft upper lobe nodule. Signed: Pietro Cortez Verified Date/Time: 02/07/2017 16:15 :33 Reading Location: [facility] Reading Room Electronic ally signed by: Josh MCKEON on 02/07/2017 04:15 PM RAD, CHEST, 1 2017-02-07 Reason for FINAL REPORT PATIENT ID: VIEW, NON DEPT 15:47:00 exam:->s/p left [id number] Comparison: Ch est x-ray lung mass performed earlier on the biopsyShould this TECHNIQUE: Single view of the be performed at the chest FINDINGS: Statu s post bedside?->Yes recent biopsy of left lung nodule. No pneumothorax post procedure. No other signific ant change. Signed: Pietro Reeseort Verified Date/Time: 02/07/2017 15:47:54 Reading Location: [facility] Radiology Re ading Room Electronically sig owen by: PIETRO REESE M.D. on 02/07/2017 03:47 PM RAD, CHEST, 1 2017-02-07 Reason for FINAL REPORT PATIENT ID: VIEW, NON DEPT 14:31:00 exam:->s/p left [id number] Technique: Sin gle view lung mass of the chest FINDINGS: Statu s biopsyShould this post recent biopsy of a left lung be performed at the nodule. No pneumothor ax bedside?->Yes bilaterally. Lungs are marin sly clear. Cardiac silhouette is enlarged. Thoracic aorta is ectatic. Signed: Pietro Reese MDRdorita Verified Date/Time: 02/07/2017 14:31:06 Reading Location: [facility] Radiology Re ading Room Electronically sig owen by: PIETRO REESE M.D. on 02/07/2017 02:31 PM CBC W/PLT COUNT & AUTO DIFFERENTIAL 2017-02-07 11:47:00 Test Item Value Reference Range Comments WHITE BLOOD CELL COUNT (BEAKER) (test code = 775) 5.8 K/ L 4.0-10.0 RED BLOOD CELL COUNT (BEAKER) (test code = 761) 2.58 M/ L 4.00-5.00 HEMOGLOBIN (BEAKER) (test code = 410) 8.9 GM/DL 12.0-15.0 HEMATOCRIT (BEAKER) (test code = 411) 26.0 % 36.0-45.0 MEAN CORPUSCULAR VOLUME (BEAKER) (test code = 753) 100.7 fL 82.0-99.0 MEAN CORPUSCULAR HEMOGLOBIN (BEAKER) (test code = 751) 34.6 pg 27.0-33.0 MEAN CORPUSCULAR HEMOGLOBIN CONC (BEAKER) (test code = 752) 34.4 GM/DL 32.0-36.0 RED CELL DISTRIBUTION WIDTH (BEAKER) (test code = 412) 16.2 % 10.3-14.2 PLATELET COUNT (BEAKER) (test code = 756) 187 K/CU MM 150-43 0 MEAN PLATELET VOLUME (BEAKER) (test code = 754) 6.7 fL 6.5-10.5 NUCLEATED RED BLOOD CELLS (BEAKER) (test code = 413) 0 /100 WBC 0-0 NEUTROPHILS RELATIVE PERCENT (BEAKER) (test code = 429) 66 % LYMPHOCYTES RELATIVE PERCENT (BEAKER) (test code = 430) 14 % MONOCYTES RELATIVE PERCENT (BEAKER) (test code = 431) 16 % EOSINOPHILS RELATIVE PERCENT (BEAKER) (test code = 432) 3 % BASOPHILS RELATIVE PERCENT (BEAKER) (test code = 437) 0 % NEUTROPHILS ABSOLUTE COUNT (BEAKER) (test code = 670) 3.80 K/ L 1.80-8.00 LYMPHOCYTES ABSOLUTE COUNT (BEAKER) (test code = 414) 0.80 K/ L 1.48-4.50 MONOCYTES ABSOLUTE COUNT (BEAKER) (test code = 415) 0.90 K/ L 0.00-1.30 EOSINOPHILS ABSOLUTE COUNT (BEAKER) (test code = 416) 0.20 K/ L 0.00-0.50 BASOPHILS ABSOLUTE COUNT (BEAKER) (test code = 417) 0.00 K/ L 0.00-0.20 (MANUAL DIFFERENTIAL)2017-02-07 11:47:00 Test Item Value Reference Range Comments TOTAL COUNTED (BEAKER) (test code = 1351) WBC MORPHOLOGY (BEAKER) (test code = 487) Normal PLT MORPHOLOGY (BEAKER) (test code = 486) Normal MACROCYTES (BEAKER) (test code = 964) 1+ few [id number] 09:42:00 Test Item Value Reference Range Comments PROTIME (BEAKER) (test code = 759) 10.1 seconds 9.3-12.0 INR (BEAKER) (test code = 370) 1.0 <=5.9 PARTIAL THROMBOPLASTIN TIME (BEAKER) (test code 20.8 seconds 23.0-35.0 = 760) RECOMMENDED COUMADIN/WARFARIN INR THERAPY RANGESSTANDARD DOSE: 2.0 - 3.0 Includes: PROPHYLAXIS forvenous thrombosis, systemic embolization; TREATMENT for venous thrombosis and/or pulmonary embolus.HIGH RISK: Target INR is 2.5-3.5 for patients with mechanical heart valves.TISSUE [id number] 10:52:00Surgical Pathology Report Case: [id number] --- Authorizing Provider: System, Provider Not In Ordering Provider: Provider, Cutover [facility] Diagnostic Imaging Collected: 07/06/2016 1155 Pathologist: Lillian Carter, Received: 07/06/2016 1241 MD Specimen: Mediastinum MEDIASTINUM, BIOPSY: -POORLY DIFFERENTIATED CARCINOMA, CONSISTENT WITH THYMIC CARCINOMA (SEE COMMENT) Signing Pathologist Direct Phone Line: [phone] morphologic findings along with the immunohistochemical profile are consistent with a thymic carcinoma. 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 Intradepartmental consultation was obtained: Dr. Louis [id number]; [id number], [id number] u0Odzabezciqq mass, ovarian cancer, unspecified lateralityMediastinumThe specimen is received in fixative and designated as "tissue exam", consists of multiple pink-lopez tissue cores ranging in size from 0.2 to 1.3 cm in aggregate. All tissue fragments are submitted into A1. MG/plPerformedThefollowing special studies were performed on this case with appropriate and reactive controls and theinterpretation is incorporated in the diagnostic report above:AE1/AE3: [id number]: PositiveCD5: PositiveTTF-1: NegativeThe immunohistochemistry test was developed and its performance characteristicsdetermined by [facility], Pathology Laboratory. It has not been cleared or approved by the U.S. Food and Drug Administration. The FDA has determined that such clearance or approval isnot necessary. The test is used for clinical purposes. It should not be regarded as investigational or for research. This laboratory is certified under the Clinical Laboratory Improvement Amendments ex5236 (CLIA-88) as qualified to perform high complexity clinical laboratory testing.[facility], Department of Pathology, [address] [place] [address], [facility], Department of Pathology, [address] [place] [id number], [facility], Department of [facility], [address] [place] [address], [id number] 09:32:00 Test Item Value Reference Range Comments PROTIME (BEAKER) (test code = 759) 10.4 seconds 9.3-12.0 INR (BEAKER) (test code = 370) 1.0 <=5.9 PARTIAL THROMBOPLASTIN TIME (BEAKER) (test code 23.1 seconds 23.0-35.0 = 760) RECOMMENDED COUMADIN/WARFARIN INR THERAPY RANGESSTANDARD DOSE: 2.0 - 3.0 Includes: PROPHYLAXIS forvenous thrombosis, systemic embolization; TREATMENT for venous thrombosis and/or pulmonary embolus.HIGH RISK: Target INR is 2.5-3.5 for patients with mechanical heart valves.CBC W/PLT COUNT & AUTO DIFFERENTIAL 2016-07-06 09:18:00 Test Item Value Reference Range Comments WHITE BLOOD CELL COUNT (BEAKER) (test code = 6.0 K/ L 4.0 -10.0 775) RED BLOOD CELL COUNT (BEAKER) (test code = 761) 3.91 M/ L 4.00-5.00 HEMOGLOBIN (BEAKER) (test code = 410) 11.1 GM/DL 12.0-15.0 HEMATOCRIT (BEAKER) (test code = 411) 33.2 % 36.0-45.0 MEAN CORPUSCULAR VOLUME (BEAKER) (test code = 84.9 fL 82 .0-99.0 753) MEAN CORPUSCULAR HEMOGLOBIN (BEAKER) (test code 28.4 pg 27.0-33.0 = 751) MEAN CORPUSCULAR HEMOGLOBIN CONC (BEAKER) (test 33.5 GM/DL 32.0-36.0 code = 752) RED CELL DISTRIBUTION WIDTH (BEAKER) (test code 13.6 % 10.3-14.2 = 412) PLATELET COUNT (BEAKER) (test code = 756) 301 K/CU MM 150-43 0 MEAN PLATELET VOLUME (BEAKER) (test code = 754) 6.1 fL 6.5-10.5 NUCLEATED RED BLOOD CELLS (BEAKER) (test code = 0 /100 WBC 0-0 413) NEUTROPHILS RELATIVE PERCENT (BEAKER) (test code 67 % = 429) LYMPHOCYTES RELATIVE PERCENT (BEAKER) (test code 17 % = 430) MONOCYTES RELATIVE PERCENT (BEAKER) (test code = 11 % 431) EOSINOPHILS RELATIVE PERCENT (BEAKER) (test code 4 % = 432) BASOPHILS RELATIVE PERCENT (BEAKER) (test code = 0 % 437) NEUTROPHILS ABSOLUTE COUNT (BEAKER) (test code = 4.00 K/ L 1.80-8.00 670) LYMPHOCYTES ABSOLUTE COUNT (BEAKER) (test code = 1.00 K/ L 1.48-4.50 414) MONOCYTES ABSOLUTE COUNT (BEAKER) (test code = 0.70 K/ L 0 .00-1.30 415) EOSINOPHILS ABSOLUTE COUNT (BEAKER) (test code = 0.20 K/ L 0.00-0.50 416) BASOPHILS ABSOLUTE COUNT (BEAKER) (test code = 0.00 K/ L 0 .00-0.20 417)
[2019-09-19] MEDS ORDERED: NA CHLORIDE 0.9% 2,000 ML ONE (20:46)
--- NOTE | 2019-09-19 21:57 | RAD REPORT ---
EXAM DESCRIPTION: RAD - Chest Single View - 09/19/2019 9:15 pm CLINICAL HISTORY: DYSPNEA Chest pain. COMPARISON: Chest Single View dated 03/27/2019; Chest Single View dated 10/14/2016; Chest Single View dated 10/13/2016; Chest Single View dated 11/09/2015 FINDINGS: Portable technique limits examination quality. The lungs are grossly clear. The heart is normal in size. No displaced fractures.Sternotomy wires pre sent. IMPRESSION: No acute intrathoracic process suspected.
[2019-09-19 23:42] LABS: Urine Blood TRACE (NEG); Urine Glucose NEGATIVE (NEG); Urine Protein TRACE (NEG); Urine Specific Gravity 1.025 (1.005-1.030); Urine pH 5.5 (5.0-7.0)
[2019-09-19] MEDS ORDERED: CEFTRIAXONE/SWI 1gm 1 GM/10 ML SYR ONE (23:48)
[2019-09-20 00:08] LABS: Absolute Lymphocytes (CBC) 0.3 K/uL (0.7-4.9); Basophils % 0.2 % (0-1.3); Hematocrit 32.5 % (36.0-45.0); Lymphocytes % 2.9 % (15.3-44.8); MPV 6.1 fL (7.6-11.3); RBC Red Blood Cell Count 3.64 M/uL (3.86-4.86)
[2019-09-20 00:15] LABS: Urine Bacteria 20-50 /HPF (<20); Urine Coarse Granular Casts 0-5 /LPF (NONE SEEN); Urine Culture Reflex Order REFLEXED; Urine RBC <5 /HPF (NONE SEEN); Urine Urothelial Cells <5 /HPF (NONE SEEN)
[2019-09-20 00:17] LABS: Bilirubin Direct 0.2 mg/dL (0-0.2); Bilirubin Total 0.6 mg/dL (0.2-1.0); Magnesium 2.2 mg/dL (1.8-2.4); Potassium 3.7 mmol/L (3.5-5.1); Protein, Total 8.2 g/dL (6.4-8.2); Troponin (Emerg Dept Use Only) 0.04 ng/mL (0.0-0.045)
[2019-09-20 00:18] LABS: Protime INR 1.1
[2019-09-20 01:06] LABS: Blood Morphology Comment NOT SEEN (NOT SEEN); Platelet Estimate ADEQ
[2019-09-20] MEDS ORDERED: NA CHLORIDE 0.9% 500 ML ONE (01:38)
--- NOTE | 2019-09-20 03:33 | ER ---
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 Coronavirus screen: Proceed with normal triage. Ebola Screen: Patient negative for fever greater than or equal to 101.5 degrees Fahrenheit, and additional compatible Ebola Virus Disease symptoms Patient denies exposure to infectious person. Patient denies travel to an Ebola-affected area in the 21 days before illness onset. No symptoms or risks identified at this time. Initial Sepsis Screen: Does the patient meet any 2 criteria? RR > 20 per min. HR > 90 bpm. Does the patient have a suspected source of infection? Yes: Acute abdominal pain. Risk Assessment: Do you want to hurt yourself or someone else? Patient reports no desire to harm self or others. Onset of symptoms was September 19, 2019. Care prior to arrival: Medication(s) given: Normal saline infusion, 300 mL IV initiated. 20 GA, in the right wrist, Glucose check: 184 Oxygen administered. via nasal cannula. 20:30 Method Of Arrival: Ambulatory sg 20:30 Acuity: JARED 2 sg Triage Assessment: 20:30 General: Appears in no apparent distress. ill, unkempt, well nourished, Behavior is sg cooperative. EENT: No signs and/or symptoms were reported regarding the EENT system. Neuro: Level of Consciousness is awake, alert, obeys commands, Oriented to person, place, situation, Speech is normal. Cardiovascular: Capillary refill is sluggish in bilateral fingers Chest pain is denied. Respiratory: Airway is patent Respiratory effort is even, unlabored, Respiratory pattern is regular, symmetrical. GI: Abdomen is round non-distended, Reports diarrhea, nausea, vomiting, pt noted to be soiled with emesis and bowel at this time. : No signs and/or symptoms were reported regarding the genitourinary system. Derm: Skin is fragile, is thin, with poor turgor Skin is moist, Skin is pale, Skin temperature is cool. Musculoskeletal: No signs and/or symptoms reported regarding the musculoskeletal system. Historical: - Allergies: 20:30 Codeine; sg 20:30 Keflex; sg 20:30 "muscle relaxer"; sg - PMHx: 20:30 CVA; Hypertension; ovarian cancer; thymus cancer; uterine cancer; sg - PSHx: 20:30 Hysterectomy; thymus removed; sg - Immunization history:: Adult Immunizations up to date. - Social history:: Smoking status: Patient denies any tobacco usage or history of. Screenin:30 Abuse screen: Denies threats or abuse. Nutritional screening: No deficits noted. jb4 Tuberculosis screening: No symptoms or risk factors identified. Fall Risk IV access (20 points). Ambulatory Aid- Crutches/Cane/Walker (15 pts). Total [place] Fall Scale indicates Low Risk Score (25-44 pts). Fall prevention measures have been instituted. Side Rails Up X 2 Placed close to Nursing Station Frequent Obs/Assesments occuring As available Patient and Family Educated on Fall Prevention Program and strategies. Assessment: 20:30 General: Appears in no apparent distress. uncomfortable, Behavior is cooperative, jb4 drowsy, quiet, PT is slow to respond to questions. Answers all questions appropriately. . Pain: Complains of pain in left trapezius and neck Pain does not radiate. Pain currently is 6 out of 10 on a pain scale. Neuro: Level of Consciousness is awake, alert, obeys commands, Oriented to person, place, time, situation. Cardiovascular: Patient's skin is warm and dry. Respiratory: Airway is patent Respiratory effort is even, unlabored, Respiratory pattern is regular, symmetrical. GI: Abdomen is non-distended, Last meal was September 20, 2019. at 20:30. : No signs and/or symptoms were reported regarding the genitourinary system. EENT: No signs and/or symptoms were reported regarding the EENT system. Derm: Skin is intact, Skin is pink, warm \\T\\ dry. Musculoskeletal: Circulation, motion, and sensation intact. Range of motion: intact in all extremities. 21:00 Reassessment: Lab unable to draw labs. IV access does not draw blood. jb4 21:30 Reassessment: Patient appears in no apparent distress at this time. Patient and/or jb4 family updated on plan of care and expected duration. Pain level reassessed. Patient is alert, oriented x 3, equal unlabored respirations, skin warm/dry/pink. Pt is more alert, continues to respond to questions appropriately. Is responding more quickly. 22:30 Reassessment: Patient appears in no apparent distress at this time. No changes from jb4 previously documented assessment. Patient and/or family updated on plan of care and expected duration. Pain level reassessed. 23:30 Reassessment: Patient appears in no apparent distress at this time. Patient and/or jb4 family updated on plan of care and expected duration. Pain level reassessed. Patient is alert, oriented x 3, equal unlabored respirations, skin warm/dry/pink. Midline placed and labs collected and sent to lab by CORAZON Carr. 09/19 00:27 Reassessment: Patient appears in no apparent distress at this time. Patient and/or jb4 family updated on plan of care and expected duration. Pain level reassessed. Patient is alert, oriented x 3, equal unlabored respirations, skin warm/dry/pink. 01:30 Reassessment: Patient appears in no apparent distress at this time. Patient and/or jb4 family updated on plan of care and expected duration. Pain level reassessed. Patient is alert, oriented x 3, equal unlabored respirations, skin warm/dry/pink. PT assisted to standing positioned and ambulated with walker around the room. Pt denies dizziness, weakness, or feeling lightheaded. Pt assisted to sitting in wheelchair, and informed she may stay sitting as long as she would like, given call light to call for assistance back to bed when ready. Provider notified of patients ability to ambulated. 02:07 Reassessment: Patient appears in no apparent distress at this time. Patient and/or jb4 family updated on plan of care and expected duration. Pain level reassessed. Patient is alert, oriented x 3, equal unlabored respirations, skin warm/dry/pink. PT assisted back to bed per request. Denies dizziness, weakness, or feeling light headed during transfer back to bed. Given warm blanket per request. 03:35 Reassessment: Patient appears in no apparent distress at this time. Patient and/or jb4 family updated on plan of care and expected duration. Pain level reassessed. PT is resting in bed with eyes closed, no s/s of distress or pain noted. Respirations are even and unlabored. D/c pending ride home. 04:00 Reassessment: [phone], no answer for Kostas Godinez at this time. sg 05:00 Reassessment: Patient appears in no apparent distress at this time. No changes from jb4 previously documented assessment. Patient and/or family updated on plan of care and expected duration. Pain level reassessed. 05:00 Reassessment: [phone], no answer for Kostas Godinez at this time. sg 06:00 Reassessment: Patient appears in no apparent distress at this time. Patient and/or jb4 family updated on plan of care and expected duration. Pain level reassessed. Patient is alert, oriented x 3, equal unlabored respirations, skin warm/dry/pink. 06:00 Reassessment: [phone], no answer for Kostas Godinez at this time, will hand off to sg dayshift to attempt to reach pt transport to home. 06:45 Reassessment: Patient appears in no apparent distress at this time. Patient and/or jb4 family updated on plan of care and expected duration. Pain level reassessed. Patient is alert, oriented x 3, equal unlabored respirations, skin warm/dry/pink. 06:56 Reassessment: [phone], no answer for Kostas Godinez at this time, will hand off to sg dayshift to attempt to reach pt transport to home. 07:04 Reassessment: RECD REPORT FROM TAMEKA CHANDRA. 78YO WF P/W VOMITING AND DIARRHEA. PT TBDC, bp AWAITING FAMILY. 07:24 Reassessment: Respirations are even and unlabored. No s/s of distress or pain noted. jb4 A\\T\\O x4. PT verbalized understanding of d/c and follow up instructions. Assisted to vehicle via wheelchair. Vital Signs: 09/18 20:28 Pulse 127; Resp 24; Pulse Ox 92% on R/A; Weight 74.84 kg (R); Pain 3/10; sg 20:28 BP 112 / 76; sg 22:00 BP 131 / 65; Pulse 102; Resp 18; Temp 97.1(TE); Pulse Ox 97% ; jb4 23:45 BP 118 / 42; Pulse 93; Resp 19; Pulse Ox 97% on R/A; jb4 0501 00:30 BP 107 / 53; Pulse 88; Resp 19; Pulse Ox 98% on R/A; jb4 00:55 BP 118 / 45; Pulse 84; Resp 19; Pulse Ox 100% on R/A; rv 02:00 BP 129 / 62; Pulse 98; Resp 22; Pulse Ox 98% on R/A; jb4 03:30 BP 128 / 45; Pulse 98; Resp 20; Pulse Ox 96% on R/A; jb4 04:30 BP 116 / 44; Pulse 88; Resp 16; Pulse Ox 95% on R/A; jb4 05:30 BP 126 / 50; Pulse 81; Resp 16; Pulse Ox 95% on R/A; jb4 06:00 BP 144 / 57; Pulse 94; Resp 16; Pulse Ox 96% on R/A; jb4 ED Course: 09/18 20:28 Patient arrived in ED. sg 20:28 Gerardo Bryson MD is Attending Physician. kdr 20:30 Dominick Guzman PA is PHCP. jr8 20:30 Patient has correct armband on for positive identification. Placed in gown. Bed in low jb4 position. Call light in reach. Side rails up X 1. quality assurance monitor chassis on. Pulse ox on. NIBP on. 20:32 Triage completed. sg 20:32 Arm band placed on. sg 20:40 Missed attempt(s): 22 gauge in left antecubital area. Bleeding controlled, band aid sg applied, catheter tip intact. 20:42 Missed attempt(s): 22 gauge in left wrist. Bleeding controlled, band aid applied, sg catheter tip intact. 21:01 Kiko Bautista RN is Primary Nurse. jb4 21:15 Chest Single View XRAY In Process Unspecified. EDMS 23:53 Inserted midline g20 x 10 cm right upper arm. rv 23:54 Lab(s) recollected, by me, sent to lab. rv 09/19 06:51 No provider procedures requiring assistance completed. IV discontinued, intact, jb4 bleeding controlled, No redness/swelling at site. Pressure dressing applied. 07:14 IV discontinued, intact, bleeding controlled, No redness/swelling at site. Pressure bp dressing applied. Administered Medications: 09/18 20:45 Drug: NS 0.9% (30 ml/kg) 30 ml/kg Route: IV; Rate: bolus; Site: right wrist; jb4 23:30 Follow up: Response: No adverse reaction; IV Status: Completed infusion; IV Intake: jb4 2245ml 23:56 Drug: Rocephin - (cefTRIAXone) 1 grams Route: IVPB; Infused Over: 30 mins; Site: right jb4 upper arm; 09/19 00:00 Follow up: Response: No adverse reaction; IV Status: Completed infusion; IV Intake: [id number] 01:37 Drug: NS 0.9% 500 ml Route: IV; Rate: bolus; Site: right upper arm; jb4 02:06 Follow up: Response: No adverse reaction; IV Status: Completed infusion; IV Intake: jb4 500ml Intake: 09/18 23:30 IV: 2245ml; Total: 2245ml. jb4 09/19 00:00 IV: 10ml; Total: 2255ml. jb4 02:06 IV: 500ml; Total: 2755ml. jb4 Outcome: 03:33 Discharge ordered by MD. kdr 07:25 Discharged to home via wheelchair, with family. jb4 07:25 Condition: stable 07:25 Discharge instructions given to patient, Instructed on discharge instructions, follow up and referral plans. medication usage, Demonstrated understanding of instructions, follow-up care, medications, Prescriptions given X 1. 07:30 Patient left the ED. jb4 Signatures: Dispatcher [employer] EDMS Herbie Cosme RN RN sg Rittger, Kevin, MD MD kdr Roszak, Josh, PA PA jr8 Kiko Bautista RN RN jb4 Rell Doss RN RN bp Bruno Martínez RN RN rv Corrections: (The following items were deleted from the chart) 00:09/18 22:30 Reassessment: Patient appears in no apparent distress at this time. Patient jb4 and/or family updated on plan of care and expected duration. Pain level reassessed. Patient is alert, oriented x 3, equal unlabored respirations, skin warm/dry/pink. jb4 09/19 00:27 09/18 22:30 Reassessment: Patient appears in no apparent distress at this time. Patient jb4 and/or family updated on plan of care and expected duration. Pain level reassessed. Patient is alert, oriented x 3, equal unlabored respirations, skin warm/dry/pink. Midline placed and labs collected and sent to lab by CORAZON Carr jb4 09/19 07:14 07:04 Reassessment: PT D/C HOME VIA W/C WITH FAMILY, DX WITH NAUSEA AND VOMITING bp bp 07:40 01:30 Reassessment: Patient appears in no apparent distress at this time. Patient jb4 and/or family updated on plan of care and expected duration. Pain level reassessed. Patient is alert, oriented x 3, equal unlabored respirations, skin warm/dry/pink. jb4 07:40 02:07 Reassessment: PT assisted back to bed. jbLola jb4
--- NOTE | 2019-09-20 03:34 | EDPHYS ---
Physician Documentation [facility] Name: Rosalind Godinez Age: 78 yrs Sex: Female : 1940 Arrival Date: 09/19/2019 Time: 20:28 Bed 2 Private MD: ED Physician Gerardo Bryson HPI: 09/18 20:32 This 78 yrs old Female presents to ER via Unassigned with complaints of jr8 n/v/d, weakness. 20:32 The patient presents to the emergency department with nausea, vomiting, diarrhea. jr8 Onset: The symptoms/episode began/occurred acutely, today. Possible causes: unknown. The symptoms are aggravated by nothing. The symptoms are alleviated by nothing. Associated signs and symptoms: Pertinent positives: weakness . Severity of symptoms: At their worst the symptoms were moderate in the emergency department the symptoms are unchanged. The patient has not experienced similar symptoms in the past. The patient has been recently seen by a physician:. Patient stated that she is suppose to have a colonoscopy tomorrow under Dr. Gonzalez. Started on [place] today. Has been having profuse vomiting and diarrhea. EMS was called because she was choking on her vomit. Stated that she was tachycardic and hypotensive on scene. Patient upon arrival normotensive but tachycardic and lethargic. Covered in vomit and feces . Historical: - Allergies: 20:30 Codeine; sg 20:30 Keflex; sg 20:30 "muscle relaxer"; sg - PMHx: 20:30 CVA; Hypertension; ovarian cancer; thymus cancer; uterine cancer; sg - PSHx: 20:30 Hysterectomy; thymus removed; sg - Immunization history:: Adult Immunizations up to date. - Social history:: Smoking status: Patient denies any tobacco usage or history of. ROS: 20:32 Eyes: Negative for injury, pain, redness, and discharge, ENT: Negative for injury, jr8 pain, and discharge, Neck: Negative for injury, pain, and swelling, Cardiovascular: Negative for chest pain, palpitations, and edema, Respiratory: Negative for shortness of breath, cough, wheezing, and pleuritic chest pain, Back: Negative for injury and pain, MS/Extremity: Negative for injury and deformity, Skin: Negative for injury, rash, and discoloration, Neuro: Negative for headache, weakness, numbness, tingling, and seizure. 20:32 Constitutional: Positive for fatigue, malaise, poor PO intake. 20:32 Abdomen/GI: Positive for nausea, vomiting, and diarrhea, Negative for abdominal pain, abdominal distension, anorexia, dysphagia, hematemesis, black/tarry stool, rectal pain, rectal bleeding, bowel incontinence, flatulence. Exam: 21:56 Eyes: Pupils equal round and reactive to light, extra-ocular motions intact. Lids and jr8 lashes normal. Conjunctiva and sclera are non-icteric and not injected. Cornea within normal limits. Periorbital areas with no swelling, redness, or edema. ENT: Nares patent. No nasal discharge, no septal abnormalities noted. Oropharynx with no redness, swelling, or masses, exudates, or evidence of obstruction, uvula midline. Mucous membranes dry. Neck: Trachea midline, no thyromegaly or masses palpated, and no cervical lymphadenopathy. Supple, full range of motion without nuchal rigidity, or vertebral point tenderness. No Meningismus. Respiratory: Lungs have equal breath sounds bilaterally, clear to auscultation and percussion. No rales, rhonchi or wheezes noted. No increased work of breathing, no retractions or nasal flaring. Abdomen/GI: Soft, non-tender, with normal bowel sounds. No distension or tympany. No guarding or rebound. No evidence of tenderness throughout. Back: No spinal tenderness. No costovertebral tenderness. Full range of motion. Skin: Warm, dry with normal turgor. Normal color with no rashes, no lesions, and no evidence of cellulitis. MS/ Extremity: Pulses equal, no cyanosis. Neurovascular intact. Full, normal range of motion. Neuro: Awake and alert, GCS 15, oriented to person, place, time, and situation. Cranial nerves II-XII grossly intact. Motor strength 5/5 in all extremities. Sensory grossly intact. Cerebellar exam normal. Normal gait. 21:56 Cardiovascular: Rate: tachycardic, Rhythm: regular, Pulses: Pulses are 2+ in right radial artery and left radial artery. Heart sounds: normal, normal S1and S2, no S3 or S4, no murmur, no rub, no gallop, Edema: is not appreciated, JVD: is not appreciated. 21:56 ECG was reviewed by the Attending Physician. Vital Signs: 20:28 Pulse 127; Resp 24; Pulse Ox 92% on R/A; Weight 74.84 kg (R); Pain 3/10; sg 20:28 BP 112 / 76; sg 22:00 BP 131 / 65; Pulse 102; Resp 18; Temp 97.1(TE); Pulse Ox 97% ; jb4 23:45 BP 118 / 42; Pulse 93; Resp 19; Pulse Ox 97% on R/A; jb4 09/19 00:30 BP 107 / 53; Pulse 88; Resp 19; Pulse Ox 98% on R/A; jb4 00:55 BP 118 / 45; Pulse 84; Resp 19; Pulse Ox 100% on R/A; rv 02:00 BP 129 / 62; Pulse 98; Resp 22; Pulse Ox 98% on R/A; jb4 03:30 BP 128 / 45; Pulse 98; Resp 20; Pulse Ox 96% on R/A; jb4 04:30 BP 116 / 44; Pulse 88; Resp 16; Pulse Ox 95% on R/A; jb4 05:30 BP 126 / 50; Pulse 81; Resp 16; Pulse Ox 95% on R/A; jb4 06:00 BP 144 / 57; Pulse 94; Resp 16; Pulse Ox 96% on R/A; jb4 MDM: 09/18 20:30 Patient medically screened. 09/19 01:27 Data reviewed: vital signs, nurses notes. Counseling: I had a detailed discussion with kdr the patient and/or guardian regarding: the historical points, exam findings, and any diagnostic results supporting the discharge/admit diagnosis, lab results, radiology results, the need for outpatient follow up. ED course: The patient was stable in the ED and had no further n/v/d. She was feeling better and wanted to go home. She ambulated behind a e/c and was stable and non-dizzy. Her VS remained stable. The patient had no other c/o in the ED.. 09/18 20:31 Order name: Basic Metabolic Panel 09/18 20:31 Order name: Blood Culture Adult (2) 09/18 20:31 Order name: CBC with Diff; Complete Time: 01:28 09/18 20:31 Order name: CPK; Complete Time: 00:24 09/18 20:31 Order name: Lactate; Complete Time: 21:19 8 09/18 20:31 Order name: LFT's; Complete Time: 00:24 8 09/18 20:31 Order name: Lipase; Complete Time: 00:24 8 09/18 20:31 Order name: Procalcitonin; Complete Time: 01:28 8 09/18 20:31 Order name: Protime (+inr); Complete Time: 00:24 [facility] 09/18 20:31 Order name: Ptt, Activated; Complete Time: 00:24 8 09/18 20:31 Order name: Troponin (emerg Dept Use Only); Complete Time: 00:24 8 09/18 20:31 Order name: Urine Microscopic Only; Complete Time: 00:24 [facility] 09/18 20:31 Order name: Magnesium; Complete Time: 00:24 [facility] 09/18 20:31 Order name: Basic Metabolic Panel; Complete Time: 00:24 [facility] 09/18 20:31 Order name: Chest Single View XRAY; Complete Time: 22:44 8 09/18 20:31 Order name: Accucheck; Complete Time: 23:36 8 09/18 20:31 Order name: Cardiac monitoring; Complete Time: 21:06 [facility] 09/18 20:31 Order name: EKG - Nurse/Tech; Complete Time: 23:21 8 09/18 20:31 Order name: IV Saline Lock - Large Bore; Complete Time: 21:06 8 09/18 20:31 Order name: Labs collected and sent; Complete Time: 21:06 [facility] 09/18 20:31 Order name: Blood Culture [facility] 09/18 23:33 Order name: Urine Dipstick--Ancillary (enter results); Complete Time: 23:48 2 09/18 23:52 Order name: Glucose, Ancillary Testing; Complete Time: 00:24 [facility] 09/19 00:17 Order name: Urine Culture [facility] 09/19 00:19 Order name: Manual Differential; Complete Time: 01:28 EDMS 09/19 01:56 Order name: Lactate Sepsis 2 HR Follow-up; Complete Time: 01:57 EDMS 09/18 20:31 Order name: O2 Per Protocol; Complete Time: 21:06 8 09/18 20:31 Order name: O2 Sat Monitoring; Complete Time: 21:06 jr8 09/18 20:31 Order name: Urine Dipstick-Ancillary (obtain specimen); Complete Time: 01:11 jr8 09/18 21:55 Order name: Labs - recollect needed: blue, green, lavender; Complete Time: 01:11 sg EC/30 21:56 Rate is 104 beats/min. Rhythm is regular, Sinus tachycardia. Left axis deviation noted. jr8 [place] interval is prolonged at 206 msec. QRS interval is normal at 76 msec. QT interval is normal. Q waves are Present in leads II, III, aVF. T waves are Normal. No ST changes noted. Clinical impression: 1st degree heart block and Inferior WI - age indeterminate. Interpreted by me. Reviewed by me. Administered Medications: 20:45 Drug: NS 0.9% (30 ml/kg) 30 ml/kg Route: IV; Rate: bolus; Site: right wrist; jb4 23:30 Follow up: Response: No adverse reaction; IV Status: Completed infusion; IV Intake: jb4 2245ml 23:56 Drug: Rocephin - (cefTRIAXone) 1 grams Route: IVPB; Infused Over: 30 mins; Site: right jb upper arm; 09/19 00:00 Follow up: Response: No adverse reaction; IV Status: Completed infusion; IV Intake: [id number] 01:37 Drug: NS 0.9% 500 ml Route: IV; Rate: bolus; Site: right upper arm; jb4 02:06 Follow up: Response: No adverse reaction; IV Status: Completed infusion; IV Intake: jb4 500ml Disposition: 03:32 Co-signature as Attending Physician, Gerardo Bryson MD I agree with the assessment and kdr plan of care. Disposition: 09/20/19 03:33 Discharged to Home. Impression: Vomiting, Diarrhea, unspecified, Weakness. - Condition is Stable. - Discharge Instructions: Nausea and Vomiting, Adult, [id number], Diarrhea, Adult, [id number], Weakness, [id number]. - Prescriptions for Zofran 4 mg Oral Tablet - take 1 tablet by ORAL route every 4-6 hours As needed; 16 tablet. - Medication Reconciliation Form, Thank You Letter form. - Follow up: Private Physician; When: 1 - 2 days; Reason: If symptoms return, Further diagnostic work-up, Recheck today's complaints, Continuance of care, Re-evaluation by your physician. - Problem is new. - Symptoms have improved. Signatures: Dispatcher [employer] [facility] Herbie Cosme, RN RN Gerardo Bryson MD MD kdr Roszak, Josh, PA PA jr8 Kiko Bautista, RN RN jb4 Corrections: (The following items were deleted from the chart) 01:34 01:30 LACTATE+C.LAB.BRZ ordered. [facility] 07:30 03:33 09/20/2019 03:33 Discharged to Home. Impression: Vomiting; Diarrhea, unspecified; jb4 Weakness. Condition is Stable. Forms are Medication Reconciliation Form, Thank You Letter, Antibiotic Education, Prescription Opioid Use. Follow up: Private Physician; When: 1 - 2 days; Reason: If symptoms return, Further diagnostic work-up, Recheck today's complaints, Continuance of care, Re-evaluation by your physician. Problem is new. Symptoms have improved. kdr
[2019-09-20 07:37] VITALS: TEMP 97.1
[2019-09-20 07:47] VITALS: BP 144/57; O2SAT 96
--- NOTE | 2019-09-20 09:45 | EKG ---
Test Date: 2019-09-19 Test Time: 21:52:01 Barrel Charrer Helper: ESTRELLA MEASUREMENT RESULTS: Intervals: Rate: 104 IA: 206 QRSD: 76 QT: 344 QTc: 452 Snow: P: 83 IA: 206 QRS: -59 T: 81 INTERPRETIVE STATEMENTS: Sinus tachycardia Left axis deviation Inferior infarct, age undetermined Cannot rule out Anterior infarct, age undetermined Abnormal ECG Electronically Signed On 09-20-19 09:44:58 CDT by Roger Stokes
== END 2019-09-20 07:30 | disposition home or self-care (01) ==
LOC: ER 20:23
DX: R19.7 Diarrhea, unspecified (principal); R53.1 Weakness; I10 Essential (primary) hypertension; Z85.42 Personal history of malignant neoplasm of other parts of uterus; Z85.43 Personal history of malignant neoplasm of ovary; Z85.238 Personal history of other malignant neoplasm of thymus; Z88.5 Allergy status to narcotic agent; Z88.8 Allergy status to other drugs, medicaments and biological substances; Z86.73 Personal history of transient ischemic attack (TIA), and cerebral infarction without residual deficits
CPT/HCPCS: 96365; 93005; 87040 ×2; 87088; 85025; 87086; 80048; 36415; 83735; 82550; 85610; 82947; 80076; 83605 ×2; 85730; 84484; 83690; 84145; 71045; 96375; 99284; 96366; J0696; J7040; J7030; 81003; 81015

== ENCOUNTER 2019-10-10 07:43 | Observation (INO) | payer OTHER ==
--- OUTSIDE RECORDS SUMMARY | 2019-10-10 07:53 | XMS REPORT | Clinical Summary ---
:1940 Author Organization [facility] [email or web address] Canyon Medical CenterPlot ProjectsSwedish Medical Center Iss[facility] Address [address] [place] [address] Care Team Providers Name Role Phone Shiloh Perez Primary Care Provider Allergies Active Allergy Reactions Severity Noted Date Comments Cephalexin Palpitations Low 07/06/2016 Throat felt lik e it was drying up Codeine Other (See Comments), Low 07/05/2016 Dizzin ess Rash Orphenadrine Citrate Swelling, Palpitations Low 07/05/2016 Medications Medication Sig Dispensed Refills Start Date End Date Status aspirin 81 MG EC tablet Take 81 mg by 0 Active mouth daily HELD . magnesium gluconate Take 500 mg by 0 Active (MAGONATE) 27.5 mg (500 mouth daily . mg) tablet losartan (COZAAR) 25 MG Take 25 mg by 0 Active tablet mouth daily. Active Problems Not on file Social History Tobacco Use Types Packs/Day Years Used Date Never Smoker Smokeless Tobacco: Never Used Alcohol Use Drinks/Week oz/Week Comments No Sex Assigned at Date Recorded Not on file Job Start Date Occupation Industry Not on file Not on file Not on file Travel History Travel Start Travel End No recent travel history available. Last Filed Vital Signs Not on file Plan of Treatment Not on file Results Not on fileafter 10/09/2018 Insurance Payer Benefit Plan / Subscriber ID Type Phone Address Group AETNA - MEDICARE AETNA MEDICARE HMO xxxxxxxx [address] MGD CARE POS PPO [facility] [id number] Advance Directives For more information, please contact:[facility] Center IssaquahJeipda[address] [place], [place] [phone] Code Status Date Activated Date Inactivated Comments Full Code 02/07/2017 11:50 AM 02/07/2017 6:23 PM This code status was determined by: Patient Full Code 07/06/2016 12:06 PM 07/08/2016 12:38 AM This code status was determined by: Patient
--- OUTSIDE RECORDS SUMMARY | 2019-10-10 07:53 | XMS REPORT ---
:1940 Author Organization [facility] t Address [address] [place] [id number] Care Team Providers Name Role Phone JAX ORTIZ Attending Clinician Unavailable Shiloh BRASHER Attending Clinician Unavailable DARNELL ROUSE Admitting Clinician Unavailable Problems This patient has no known problems. Allergies, Adverse Reactions, Alerts This patient has no known allergies or adverse reactions. Medications This patient has no known medications. Procedures This patient has no known procedures. Results Test Description Test Time Test Comments Results Result [facility] e Comments TISSUE EXAM 2017-02-10 Surgical Pathology 12:35:00 Report Case: [id number] Authorizing Provider: Jaida Singer MD Collected: 02/07/2017 1122 Ordering Location: [facility] Diagnostic Imaging Received: 02/07/2017 1139 Pathologist: Clau Lundberg MD Specimen: Lung, Left LUNG, LEFT, BIOPSY: - BENIGN LUNG TISSUE WITH TYPE 2 PNEUMOCYTE HYPERPLASIA AND CHRONIC INFLAMMATION - NEGATIVE FOR ACID FAST BACILLI AND FUNGUS ON AFB AND GMS STAINED SECTIONS Signing Pathologist Direct Phone Line: [phone] ically signed by Clau Lundberg MD on 02/10/2017 at 12:35 PMAL/[id number], [id number] z2Vzmems of thymus and lung nodule Left lungThe [...] AFB stain is negative for acid fast bacilli.[facility], Department of Pathology, [address] [place] [address], Hmwvzj [facility], Department of Pathology, [address] [place] [address], ZySaint [facility]illus [facility] Center, Department of Pathology, [address] [place] [address], [address], BIOPSY, LUNG 2017-02-07 Reason for FINAL REPORT PATIENT 16:15:00 Exam:->[id number] ID: [id number] CT-guided left lung nodule biopsy, DOSE REDUCTION: The examination was performed according to departmental dose-optimization program which includes automated exposure control, adjustment of the mA and/or kV according to patient size and/or use of iterative reconstruction technique. Clinical History: History of thymic cancer Social Studies Teacher: Mary Ann Conscious sedation: Versed 1 mg, fentanyl 50 mcg, (Administered after informed consent was obtained) Vital signs were monitored throughout the procedure by a nurse, and remained stable. Physician patient [id number] intra-service time was 30 minutes. Local anesthesia: [...] a left upper lobe nodule. Signed: Maricruz Rouse MDReport Verified Date/Time: 02/07/2017 16:15:33 Reading Location: [facility] Radiology Reading Room , CHEST, 1 2017-02-07 Reason for FINAL REPORT PATIENT VIEW, NON DEPT 15:47:00 exam:->s/p left ID: [id number] lung mass Comparison: Chest biopsyShould this x-ray performed be performed at earlier on the same the bedside?->Yes day TECHNIQUE: Single view of the chest FINDINGS: Status post recent biopsy of left lung nodule. No pneumothorax post procedure. No other significant change. Signed: Maricruz Rouse MDReport Verified Date/Time: 02/07/2017 15:47:54 Reading Location: [facility] Radiology Reading Room , CHEST, 1 2017-02-07 Reason for FINAL REPORT PATIENT VIEW, NON DEPT 14:31:00 exam:->s/p left ID: [id number] lung mass Technique: Single biopsyShould this view of the chest be performed at FINDINGS: Status the bedside?->Yes post recent biopsy of a left lung nodule. No pneumothorax bilaterally. Lungs are grossly clear. Cardiac silhouette is enlarged. Thoracic aorta is ectatic. Signed: Maricruz Rouse Verified Date/Time: 02/07/2017 14:31:06 Reading Location: [facility] Radiology Reading Room W/PLT COUNT & AUTO DIFFERENTIAL 2017-02-07 11:47:00 Test Item Value Reference Range Interpretation Comme nts WHITE BLOOD CELL COUNT (BEAKER) (test code = 775) 5.8 K/ L 4.0- 10.0 RED BLOOD CELL COUNT (BEAKER) (test code = 761) 2.58 M/ L 4.00-5 .00 L HEMOGLOBIN (BEAKER) (test code = 410) 8.9 GM/DL 12.0-15.0 L HEMATOCRIT (BEAKER) (test code = 411) 26.0 % 36.0-45.0 L MEAN CORPUSCULAR VOLUME (BEAKER) (test code = 753) 100.7 fL 82. 0-99.0 H MEAN CORPUSCULAR HEMOGLOBIN (BEAKER) (test code = 751) 34.6 pg 27.0-33.0 H MEAN CORPUSCULAR HEMOGLOBIN CONC (BEAKER) (test code = 752) 34.4 GM/DL 32.0-36.0 RED CELL DISTRIBUTION WIDTH (BEAKER) (test code = 412) 16.2 % 10.3-14.2 H PLATELET COUNT (BEAKER) (test code = 756) 187 K/CU MM 150-430 MEAN PLATELET VOLUME (BEAKER) (test code = 754) 6.7 fL 6.5-10 .5 NUCLEATED RED BLOOD CELLS (BEAKER) (test code = 413) 0 /100 WBC 0 -0 NEUTROPHILS RELATIVE PERCENT (BEAKER) (test code = [...] code = 414) 0.80 K/ L 1.48-4.50 L MONOCYTES ABSOLUTE COUNT (BEAKER) (test code = 415) 0.90 K/ L 0. 00-1.30 EOSINOPHILS ABSOLUTE COUNT (BEAKER) (test code = 416) 0.20 K/ L 0.00-0.50 BASOPHILS ABSOLUTE COUNT (BEAKER) (test code = 417) 0.00 K/ L 0. 00-0.20 (MANUAL DIFFERENTIAL)2017-02-07 11:47:00 Test Item Value Reference Range Interpretation Comments TOTAL COUNTED (BEAKER) (test code = 1351) WBC MORPHOLOGY (BEAKER) (test code = Normal 487) PLT MORPHOLOGY (BEAKER) (test code = Normal 486) MACROCYTES (BEAKER) (test code = 964) 1+ few [id number] 09:42:00 Test Item Value Reference Range Interpretation Comments PROTIME (BEAKER) (test code = 10.1 seconds 9.3-12.0 759) INR (BEAKER) (test code = 370) 1.0 <=5.9 PARTIAL THROMBOPLASTIN TIME 20.8 seconds 23.0-35.0 L (BEAKER) (test code = 760) RECOMMENDED COUMADIN/WARFARIN INR THERAPY RANGESSTANDARD DOSE: 2.0 - 3.0 Includes: PROPHYLAXIS forvenous thrombosis, systemic embolization; TREATMENT for venous thrombosis and/or pulmonary embolus.HIGH RISK: Target INR is 2.5-3.5 for patients with mechanical heart valves.TISSUE [id number] 10:52:00Surgical Pathology Report Case: [id number] --- Authorizing Provider: System, Provider Not In Ordering Provider: Provider, Cutover [facility]ingLocation[facility] Diagnostic Imaging Collected: 07/06/2016 1155 Pathologist: Lillian Carter, Received: 07/06/2016 1241 Specimen: Mediastinum MEDIASTINUM, BIOPSY: -POORLY DIFFERENTIATED CARCINOMA, CONSISTENT WITH THYMIC CARCINOMA (SEE COMMENT) Signing Pathologist Direct Phone Line: [phone] morphologic findings along with the immunohistochemical profile are consistent with a thymic carcinoma. 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 Intradepartmental consultation was obtained: Dr. Louis [id number]; [id number], [address]057 y1Xlzdpldnqva mass, ovarian cancer, unspecified lateralityMediastinumThe specimen is received in fixative and designated as "tissue exam", consists of multiple pink-lopez tissue cores ranging in size from 0.2 to 1.3 cm in aggregate. All tissue fragments are submitted into A1. MG/plPerformedThefollowing special studies were performed on this case with appropriate and reactive controls and theinterpretation is incorporated in the diagnostic report above:AE1/AE3: [id number]: PositiveCD5: PositiveTTF-1: NegativeThe immunohistochemistry test was developed and its performance characteristicsdetermined by [facility], Pathology Laboratory. It has not been cleared or approved by the U.S. Food and Drug Administration. The FDA has determined that such clearance or approval isnot necessary. The test is used for clinical purposes. It should not be regarded as investigational or for research. This laboratory is certified under the Clinical Laboratory Improvement Amendments hi6163 (CLIA-88) as qualified to perform high complexity clinical laboratory testing.[facility], Department of Pathology, [address] [place] [address], Zdtnop [facility], Department of Pathology, [address] [place] [address], IqSaint [facility]illus Medical Center, Department of Pathology, [address] [place] [address], [id number] 09:32:00 Test Item Value Reference Range Interpretation Comments PROTIME (BEAKER) (test code = 10.4 seconds 9.3-12.0 759) INR (BEAKER) (test code = 370) 1.0 <=5.9 PARTIAL THROMBOPLASTIN TIME 23.1 seconds 23.0-35.0 (BEAKER) (test code = 760) RECOMMENDED COUMADIN/WARFARIN INR THERAPY RANGESSTANDARD DOSE: 2.0 - 3.0 Includes: PROPHYLAXIS forvenous thrombosis, systemic embolization; TREATMENT for venous thrombosis and/or pulmonary embolus.HIGH RISK: Target INR is 2.5-3.5 for patients with mechanical heart valves.CBC W/PLT COUNT & AUTO DIFFERENTIAL 2016-07-06 09:18:00 Test Item Value Reference Range Interpretation Comments WHITE BLOOD CELL COUNT (BEAKER) 6.0 K/ L 4.0-10.0 (test code = 775) RED BLOOD CELL COUNT (BEAKER) 3.91 M/ L 4.00-5.00 L (test code = 761) HEMOGLOBIN (BEAKER) (test code = 11.1 GM/DL 12.0-15.0 L 410) HEMATOCRIT (BEAKER) (test code = 33.2 % 36.0-45.0 L 411) MEAN CORPUSCULAR VOLUME (BEAKER) 84.9 fL 82.0-99.0 (test code = 753) MEAN CORPUSCULAR HEMOGLOBIN 28.4 pg 27.0-33.0 (BEAKER) (test code = 751) MEAN CORPUSCULAR HEMOGLOBIN CONC 33.5 GM/DL 32.0-36.0 (BEAKER) (test code = 752) RED CELL DISTRIBUTION WIDTH 13.6 % 10.3-14.2 (BEAKER) (test code = 412) PLATELET COUNT (BEAKER) (test 301 K/CU MM 150-430 code = 756) MEAN PLATELET VOLUME (BEAKER) 6.1 fL 6.5-10.5 L (test code = 754) NUCLEATED RED BLOOD CELLS 0 /100 WBC 0-0 (BEAKER) (test code = 413) NEUTROPHILS RELATIVE PERCENT 67 % (BEAKER) (test code = 429) LYMPHOCYTES RELATIVE PERCENT 17 % (BEAKER) (test code = 430) MONOCYTES RELATIVE PERCENT 11 % (BEAKER) (test code = 431) EOSINOPHILS RELATIVE PERCENT 4 % (BEAKER) (test code = 432) BASOPHILS RELATIVE PERCENT 0 % (BEAKER) (test code = 437) NEUTROPHILS ABSOLUTE COUNT 4.00 K/ L 1.80-8.00 (BEAKER) (test code = 670) LYMPHOCYTES ABSOLUTE COUNT 1.00 K/ L 1.48-4.50 L (BEAKER) (test code = 414) MONOCYTES ABSOLUTE COUNT (BEAKER) 0.70 K/ L 0.00-1.30 (test code = 415) EOSINOPHILS ABSOLUTE COUNT 0.20 K/ L 0.00-0.50 (BEAKER) (test code = 416) BASOPHILS ABSOLUTE COUNT (BEAKER) 0.00 K/ L 0.00-0.20 (test code = 417)
--- NOTE | 2019-10-10 08:48 | RAD REPORT ---
EXAM DESCRIPTION: RAD - Chest Single View - 10/10/2019 8:34 am CLINICAL HISTORY: weakness, shortness of breath COMPARISON: September 18 TECHNIQUE: AP portable chest image was obtained 10/10/2019 8:34 am . FINDINGS: No focal lung parenchymal process. Heart and vasculature are normal. No pneumothorax. Bila teral costophrenic angle blunting is present similar to comparison. Minimal effusion cannot be exclud ed. Interstitial pattern is similar to comparison. Sternotomy wires in place. No acute bony abnormali ty seen. No acute aortic findings suspected. IMPRESSION: No acute cardiopulmonary process. Chronic chest findings match comparison.
[2019-10-10 09:18] LABS: Absolute Lymphocytes (CBC) 0.3 K/uL (0.7-4.9); Basophils % 0.3 % (0-1.3); Hematocrit 32.2 % (36.0-45.0); Lymphocytes % 2.1 % (15.3-44.8); MPV 6.8 fL (7.6-11.3); RBC Red Blood Cell Count 3.63 M/uL (3.86-4.86)
[2019-10-10 09:37] LABS: Albumin 2.6 g/dL (3.4-5.0); Bilirubin Direct 0.4 mg/dL (0-0.2); Bilirubin Total 0.9 mg/dL (0.2-1.0); Magnesium 1.6 mg/dL (1.8-2.4); Potassium 4.4 mmol/L (3.5-5.1); Protein, Total 7.5 g/dL (6.4-8.2); Troponin (Emerg Dept Use Only) 0.02 ng/mL (0.0-0.045)
[2019-10-10 09:52] LABS: Blood Morphology Comment NOT SEEN (NOT SEEN); Platelet Estimate ADEQ
--- NOTE | 2019-10-10 11:37 | ER ---
Nurse's Notes [facility] Name: Rosalind Godinez Age: 78 yrs Sex: Female : 1940 Arrival Date: 10/10/2019 Time: 07:49 Bed 3 Private MD: Diagnosis: Hypotension, Near Syncope, fall from sitting Presentation: 10/09 07:38 Chief complaint: EMS states: Pt. is 78 yr. old, A \\T\\ O x 4, was initially called out for [facility] Lift Assist, but when EMS checked her blood pressure it was 68/40, pt. was pale, increased HR and R increased. Initiated an IV and administered NS 500 ml. 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 Allergic to Codeine, Keflex, and an unknown muscle relaxer. Home medications are Aspirin and Losartan, no meds taken this morning. 07:38 Coronavirus screen: Proceed with normal triage. Ebola Screen: Patient denies travel to [facility] an Ebola-affected area in the 21 days before illness onset. Initial Sepsis Screen: Does the patient meet any 2 criteria? No. Patient's initial sepsis screen is negative. Does the patient have a suspected source of infection? No. Patient's initial sepsis screen is negative. Risk Assessment: Do you want to hurt yourself or someone else? Patient reports no desire to harm self or others. Onset of symptoms was October 10, 2019. 07:38 Method Of Arrival: EMS: [place] [address] 07:38 Acuity: JARED 3 rb1 Triage Assessment: 07:38 General: Appears in no apparent distress. comfortable, slender, Behavior is calm, rb1 cooperative, Denies fever. Pain: Complains of pain in back Pain currently is 5 out of 10 on a pain scale. Neuro: Level of Consciousness is awake, alert, obeys commands, Oriented to person, place, time, situation. Cardiovascular: Capillary refill < 3 seconds. Respiratory: Airway is patent Respiratory effort is even, unlabored, Respiratory pattern is regular, symmetrical. GI: No signs and/or symptoms were reported involving the gastrointestinal system. : No signs and/or symptoms were reported regarding the genitourinary system. Derm: Skin is pink, warm \\T\\ dry. Historical: - Allergies: 07:38 "muscle relaxer"; rb1 07:38 Codeine; rb1 07:38 Keflex; rb1 - Home Meds: 07:38 Unable to obtain [Active]; rb1 - PMHx: 07:38 CVA; Hypertension; ovarian cancer; thymus cancer; uterine cancer; rb1 - PSHx: 07:38 Hysterectomy; thymus removed; rb1 - Immunization history:: Adult Immunizations up to date. - Social history:: Smoking status: Patient/guardian denies using. Screenin:38 Abuse screen: Denies threats or abuse. Nutritional screening: No deficits noted. rb1 Tuberculosis screening: No symptoms or risk factors identified. Fall Risk No fall in past 12 months (0 pts). Secondary diagnosis (15 points) impaired mobility, IV access (20 points). Ambulatory Aid- None/Bed Rest/Nurse Assist (0 pts). Gait- Impaired (20 pts.). Mental Status- Oriented to own ability (0 pts). Total Oro Fall Scale indicates High Risk Score (45 or more points). Fall prevention measures have been instituted. Side Rails Up X 2 Placed Close to Nursing Station 1:1 Attendant Assigned Frequent Obs/Assessments Occuring As available patient and family educated on Fall Prevention Program and Strategies. Assessment: 07:38 General: See triage assessment. rb1 08:21 Reassessment: Dr. Byrson at the pt. bedside. rb1 08:40 Reassessment: Spoke to pt's over the phone and Pt's verbalizes concern aa5 about decreased appetite x 3 weeks ago and not "really eating much at all over the last 3-4 days and she also hasn't had a bowel movement in 3-4 days". 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 Pt's also reports pt's PCP is Dr. Roberts. Dr. Bryson was notified of pt's concerns and statements. . 09:00 Reassessment: PHLEBOTOMY AT B/S FOR BLOOD DRAW. bp 09:40 Reassessment: Patient appears in no apparent distress at this time. No changes from rb1 previously documented assessment. 09:55 Reassessment: PT REFUSING STRAIGHT CATH. STATES UNABLE TO USE BED VELÁZQUEZ. bp 10:33 Reassessment: Spoke to the on the telephone, updated him on the POC and test rb1 results. 10:55 Reassessment: Patient appears in no apparent distress at this time. Pt. is resting with rb1 eyes, closed. Respirations even, unlabored. Call light within reach. 11:47 Reassessment: DR ZELAYA AT B/S FOR ADMIT EVAL. bp 11:55 Reassessment: Patient appears in no apparent distress at this time. Patient and/or rb1 family updated on plan of care and expected duration. Pain level reassessed. 12:30 Reassessment: Patient appears in no apparent distress at this time. Patient and/or rb1 family updated on plan of care and expected duration. Pain level reassessed. Pt. was resting with eyes closed. call light within reach. 13:29 Reassessment: PT SLEEPING. ADMIT IN PROCESS. bp 14:30 Reassessment: Patient appears in no apparent distress at this time. No changes from rb1 previously documented assessment. 14:58 Reassessment: Tried to call report to CORAZON Rudd, but was left on hold. rb1 15:08 Reassessment: Unable to give report at this time, nurse is in a pt. room. rb1 15:22 Reassessment: ADMIT COMPLETE, REPORT TO TAYA CHANDRA. bp Vital Signs: 07:38 BP 129 / 53; Pulse 90; Resp 17; Temp 98.1; Pulse Ox 98% ; Weight 58.97 kg; Height 5 ft. rb1 3 in. (160.02 cm); Pain 5/10; 08:30 BP 116 / 66; Pulse 86; Resp 18; Pulse Ox 100% ; rb1 09:30 BP 99 / 36; Pulse 80; Resp 17; Pulse Ox 98% ; rb1 10:30 BP 105 / 38; Pulse 72; Resp 24; Pulse Ox 99% ; rb1 11:47 BP 122 / 49; Pulse 75; Resp 19; Pulse Ox 99% ; bp 12:30 BP 113 / 45; Pulse 73; Resp 21; Pulse Ox 98% ; rb1 13:29 BP 112 / 50; Pulse 69; Resp 19; Pulse Ox 99% ; bp 14:29 BP 133 / 55; Pulse 74; Resp 17; Pulse Ox 98% ; rb1 15:24 BP 131 / 52; Pulse 70; Resp 19; Pulse Ox 98% ; bp 07:38 Body Mass Index 23.03 (58.97 kg, 160.02 cm) rb1 ED Course: 07:38 Arm band placed on right wrist. rb1 07:38 Patient has correct armband on for positive identification. Placed in gown. Bed in low rb1 position. Call light in reach. Side rails up X2. patient monitor on. Pulse ox on. NIBP on. Warm blanket given. 07:38 Maintain EMS IV. Dressing intact. Good blood return noted. Site clean \\T\\ dry. Gauge \\T\\ rb 1 site: 22 G L FA. 07:49 Patient arrived in ED. rb1 07:54 Annel Castillo, RN is Primary Nurse. rb1 07:58 Gerardo Bryson MD is Attending Physician. kdr 08:12 Triage completed. rb1 08:35 XRAY Chest (1 view) In Process Unspecified. EDMS 08:47 EKG done, by certified technician. reviewed by Gerardo Bryson MD. at1 11:36 Rolando Zelaya DO is Hospitalizing Provider. kdr 12:15 CT Head Brain wo Cont In Process Unspecified. EDMS 15:23 No provider procedures requiring assistance completed. Patient admitted, IV remains in bp place. Administered Medications: 13:35 Drug: Rocephin - (cefTRIAXone) 1 grams Route: IVPB; Infused Over: 30 mins; Site: left rb1 forearm; 15:23 Follow up: IV Status: Completed infusion; IV Intake: 20ml bp Intake: 15:23 IV: 20ml; Total: 20ml. bp Outcome: 11:37 Decision to Hospitalize by Provider. kdr 15:23 Admitted to Med/surg accompanied by tech, via wheelchair, room 201, with chart, Report bp called to TAYA CHANDRA 15:23 Condition: stable 15:23 Instructed on the need for admit. 15:54 Patient left the ED. rb1 Signatures: Dispatcher [employer] EDMS Gerardo Bryson MD MD kdr Elodia Bundy, RN RN aa5 Ramya Pinto, staff technologist EKG Tat1 Annel Castillo, RN RN rb1 Rell Doss, RN RN bp Corrections: (The following items were deleted from the chart) 08:49 07:38 Fall Risk No fall in past 12 months (0 pts). Secondary diagnosis (15 points) rb1 impaired mobility, IV access (20 points). Ambulatory Aid- None/Bed Rest/Nurse Assist (0 pts). Gait- Impaired (20 pts.). Mental Status- Oriented to own ability (0 pts). Total Oro Fall Scale indicates High Risk Score (45 or more points). Fall prevention measures have been instituted. Side Rails Up X 2 Placed Close to Nursing Station 1:1 Attendant Assigned Frequent Obs/Assessments Occuring As available patient and family educated on Fall Prevention Program and Strategies. rb1 08:51 07:38 BP 129 / 53; Pulse 90bpm; Resp 17bpm; Pulse Ox 98%; Temp 98.1F; 58.97 kg; Height rb1 5 ft. 3 in.; BMI: 23.0; Pain 0/10; rb1
--- NOTE | 2019-10-10 11:37 | EDPHYS ---
Physician Documentation [facility] Name: Rosalind Godinez Age: 78 yrs Sex: Female : 1940 Arrival Date: 10/10/2019 Time: 07:49 Bed 3 Private MD: ED Physician Gerardo Bryson HPI: 10/09 09:18 This 78 yrs old Female presents to ER via EMS with complaints of Hypotension. kdr 09:18 The patient fell from wheel chair and her was not able to get her back up. He kdr called EMS who upon arrival and initial evaluation, noted her BP to be in the 60's. She was given a small bolus of fluid in route to the ED. Upon arrival, her BP was noted to be normal and she had no focal c/o. Onset: The symptoms/episode began/occurred suddenly, just prior to arrival. Severity of symptoms: At their worst the symptoms were moderate in the emergency department the symptoms have resolved. It is unknown whether or not the patient has had similar symptoms in the past. The patient has not recently seen a physician, Routine care. Historical: - Allergies: 07:38 "muscle relaxer"; rb1 07:38 Codeine; rb1 07:38 Keflex; rb1 - Home Meds: 07:38 Unable to obtain [Active]; rb1 - PMHx: 07:38 CVA; Hypertension; ovarian cancer; thymus cancer; uterine cancer; rb1 - PSHx: 07:38 Hysterectomy; thymus removed; rb1 - Immunization history:: Adult Immunizations up to date. - Social history:: Smoking status: Patient/guardian denies using. ROS: 09:18 Constitutional: Negative for fever, chills, and weight loss - she has had poor intake kdr for the past few days and has been generally weak Eyes: Negative for injury, pain, redness, and discharge, ENT: Negative for injury, pain, and discharge, Neck: Negative for injury, pain, and swelling, Cardiovascular: Negative for chest pain, palpitations, and edema, Respiratory: Negative for shortness of breath, cough, wheezing, and pleuritic chest pain, Abdomen/GI: Negative for abdominal pain, nausea, vomiting, diarrhea, and constipation, Back: Negative for injury and pain, : Negative for injury, bleeding, discharge, and swelling, MS/Extremity: Negative for injury and deformity, Skin: Negative for injury, rash, and discoloration, Psych: Negative for depression, anxiety, suicide ideation, homicidal ideation, and hallucinations, Allergy/Immunology: Negative for hives, rash, and allergies, Endocrine: Negative for neck swelling, polydipsia, polyuria, polyphagia, and marked weight changes, Hematologic/Lymphatic: Negative for swollen nodes, abnormal bleeding, and unusual bruising. 09:18 Neuro: Positive for weakness, Negative for altered mental status, loss of consciousness, seizure activity, speech changes, tinnitus, tremor, visual changes. Exam: 09:18 Constitutional: This is a well developed, poorly nourished patient who is awake, kdr alert, and in no acute distress. Head/Face: Normocephalic, atraumatic. Eyes: Pupils equal round and reactive to light, extra-ocular motions intact. Lids and lashes normal. Conjunctiva and sclera are non-icteric and not injected. Cornea within normal limits. Periorbital areas with no swelling, redness, or edema. Neck: Trachea midline, no thyromegaly or masses palpated, and no cervical lymphadenopathy. Supple, full range of motion without nuchal rigidity, or vertebral point tenderness. No Meningismus. Chest/axilla: Normal chest wall appearance and motion. Nontender with no deformity. No lesions are appreciated. Cardiovascular: Regular rate and rhythm with a normal S1 and S2. No gallops, murmurs, or rubs. Normal PMI, no JVD. No pulse deficits. Respiratory: Lungs have equal breath sounds bilaterally, clear to auscultation and percussion. No rales, rhonchi or wheezes noted. No increased work of breathing, no retractions or nasal flaring. Abdomen/GI: Soft, non-tender, with normal bowel sounds. No distension or tympany. No guarding or rebound. No evidence of tenderness throughout. Back: No spinal tenderness. No costovertebral tenderness. Full range of motion. Skin: Warm, dry with normal turgor. Normal color with no rashes, no lesions, and no evidence of cellulitis. MS/ Extremity: Pulses equal, no cyanosis. Neurovascular intact. Full, normal range of motion. Neuro: Awake and alert, GCS 15, oriented to person, place, time, and situation. Cranial nerves II-XII grossly intact. Motor strength 5/5 in all extremities. Sensory grossly intact. Cerebellar exam normal. Normal gait. Psych: Awake, alert, with orientation to person, place and time. Behavior, mood, and affect are within normal limits. 09:18 ECG was reviewed by the Attending Physician. kdr Vital Signs: 07:38 BP 129 / 53; Pulse 90; Resp 17; Temp 98.1; Pulse Ox 98% ; Weight 58.97 kg; Height 5 ft. rb1 3 in. (160.02 cm); Pain 5/10; 08:30 BP 116 / 66; Pulse 86; Resp 18; Pulse Ox 100% ; rb1 09:30 BP 99 / 36; Pulse 80; Resp 17; Pulse Ox 98% ; rb1 10:30 BP 105 / 38; Pulse 72; Resp 24; Pulse Ox 99% ; rb1 11:47 BP 122 / 49; Pulse 75; Resp 19; Pulse Ox 99% ; bp 12:30 BP 113 / 45; Pulse 73; Resp 21; Pulse Ox 98% ; rb1 13:29 BP 112 / 50; Pulse 69; Resp 19; Pulse Ox 99% ; bp 14:29 BP 133 / 55; Pulse 74; Resp 17; Pulse Ox 98% ; rb1 15:24 BP 131 / 52; Pulse 70; Resp 19; Pulse Ox 98% ; bp 07:38 Body Mass Index 23.03 (58.97 kg, 160.02 cm) rb1 MDM: 09:18 Data reviewed: vital signs, nurses notes, lab test result(s), radiologic studies. kdr 11:37 Patient medically screened. kdr 10/09 08:24 Order name: Basic Metabolic Panel; Complete Time: 10:46 kdr 10/09 08:24 Order name: CBC with Diff kdr 10/09 08:24 Order name: LFT's; Complete Time: 10:46 kdr 10/09 08:24 Order name: Magnesium; Complete Time: 10:46 kdr 10/09 08:24 Order name: Troponin (emerg Dept Use Only); Complete Time: 10:46 kdr 10/09 09:53 Order name: Manual Differential; Complete Time: 10:46 EDMS 10/09 08:24 Order name: XRAY Chest (1 view); Complete Time: 09:44 kdr 10/09 08:24 Order name: EKG; Complete Time: 08:25 kdr 10/09 08:24 Order name: Cardiac monitoring; Complete Time: 08:26 kdr 10/09 08:24 Order name: EKG - Nurse/Tech; Complete Time: 08:32 kdr 10/09 08:24 Order name: IV Saline Lock; Complete Time: 08:25 kdr 10/09 11:59 Order name: CT Head Brain wo Cont; Complete Time: 13:12 aa5 10/09 12:11 Order name: Urine Dipstick--Ancillary (enter results); Complete Time: 13:12 tt3 10/09 08:24 Order name: Labs collected and sent; Complete Time: 09:11 kdr 10/09 08:24 Order name: O2 Per Protocol; Complete Time: 08:25 kdr 10/09 08:24 Order name: O2 Sat Monitoring; Complete Time: 08:25 kdr 10/09 08:24 Order name: Urine Dipstick-Ancillary (obtain specimen): CAth; Complete Time: 15:24 kdr EC:18 Rate is 86 beats/min. Rhythm is regular, Normal Sinus Rhythm with No ectopy. QRS Ward kdr is Normal. NC interval is normal. QRS interval is normal. Clinical impression: NSR w/ Non-specific ST/T Changes. Administered Medications: 13:35 Drug: Rocephin - (cefTRIAXone) 1 grams Route: IVPB; Infused Over: 30 mins; Site: left rb1 forearm; 15:23 Follow up: IV Status: Completed infusion; IV Intake: 20ml bp Disposition: 10/10/19 11:37 Hospitalization ordered by Rolando Pandey for Observation. Preliminary diagnosis is Hypotension, Near Syncope, fall from sitting. - Bed requested for Telemetry/MedSurg (observation). - Status is Observation. rb1 - Condition is Fair. - Problem is new. - Symptoms have improved. Signatures: Dispatcher [employer] EDIL Mabel Garcia RN RN dw Gerardo Bryson MD MD kdr Annel Castillo RN RN rb1 Rell Doss RN bp Corrections: (The following items were deleted from the chart) 14:02 11:37 Hospitalization Ordered by Rolando Pandey DO for Observation. Preliminary diagnosis is Hypotension, Near Syncope, fall from sitting. Bed requested for Telemetry/MedSurg (observation). Status is Observation. Condition is Fair. Problem is new. Symptoms have improved. kdr 15:54 14:02 10/10/2019 11:37 Hospitalization Ordered by Rolando Pandey DO for Observation. rb1 Preliminary diagnosis is Hypotension, Near Syncope, fall from sitting. Bed requested for Telemetry/MedSurg (observation). Status is Observation. Condition is Fair. Problem is new. Symptoms have improved. dw
--- NOTE | 2019-10-10 12:25 | RAD REPORT ---
EXAM DESCRIPTION: CT - Head Brain Wo Cont - 10/10/2019 12:15 pm CLINICAL HISTORY: confusion/fall, hypotension COMPARISON: Head Brain Wo Cont dated 03/27/2019 TECHNIQUE: Axial 5 mm thick images of the head were obtained without IV contrast. All CT scans are performed using dose optimization technique as appropriate and may include automated exposure control or mA/KV adjustment according to patient size. FINDINGS: No intracranial hemorrhage, mass, edema or shift of mid-line structures. No acute cortical based infarction. Patient has prominent atrophy and chronic ischemic changes that match the 2019 com parison. No abnormal extra-axial fluid collections. Ventricles are in proportion to the volume loss. Mastoid air cells and visualized portions of the paranasal sinuses are clear. No acute bony findings. IMPRESSION: Prominent atrophy and chronic ischemic change matching comparison. No hemorrhage or acute intracranial finding seen. Chronic ischemic changes can mask nonhemorrhagic acute infarction. MR brain followup can be obtained if there is ongoing concern for acute ischemia.
[2019-10-10 13:10] LABS: Urine Blood 1+ (NEG); Urine Glucose NEGATIVE (NEG); Urine Protein 2+ (NEG)
[2019-10-10] MEDS ORDERED: CEFTRIAXONE/SWI 1gm 1 GM/10 ML SYR ONE (13:40)
--- NOTE | 2019-10-10 13:59 | P.HP ---
Certification for Inpatient Patient admitted to: Observation With expected LOS: <2 Midnights Patient will require the following post-hospital care: Home Health Services Practitioner: I am a practitioner with admitting privileges, knowledge of patient current condition, hospital course, and medical plan of care. Services: Services provided to patient in accordance with Admission requirements found in Title 42 Section 412.3 of the Code of Federal Regulations Patient History Date of Service: 10/10/19 Primary Care Provider: Dr. Stallworth Reason for admission: Presyncope History of Present Illness: 78-year-old female with history of hypertension, hyperlipidemia, history of CVA and endometrial cancer. Patient presented to the emergency room after she was feeling tired and weak. She reports that she felt like she was going to faint. Her called EMS. EMS arrived and noted a blood pressure systolic of around 69. The patient was given 250 bolus of normal saline. Patient denied any chest pain, shortness of breath. Patient also denied any fever, chills, cough, diarrhea at this time. She does report that last week she had to take a bowel prep in preparation for colonoscopy. Since that time she has felt fatigued and tired. In the emergency room she was evaluated. After 250 cc bolus of normal saline given by EMS, blood pressure was Re checked in the emergency room. Vital signs have remained stable. White count 12.2, hemoglobin 10.6. Platelet count of 212. Sodium 137, potassium 4.4, BUN of 19, creatinine 1.24. GFR 42. Glucose 82. Troponin 0.02. Chest x-ray unremarkable. CT head unremarkable. Patient was admitted for further evaluation and observation. When I saw the patient ER, patient appeared dehydrated. She did not appear septic. Patient stable this time. Allergies cephalexin [From Keflex] Allergy (Verified 11/18/15 16:02) Hives/Rash codeine Allergy (Verified 10/14/16 05:15) Hives/Rash Home Medications: Aspirin [Aspirin EC 81 MG] 81 mg PO DAILY #30 tablet. 12/10/15 Losartan Potassium 25 mg PO DAILY 10/13/16 - Past Medical/Surgical History Diabetic: No -: Hypertension -: Anemia -: History of CVA -: Thymic CA -: Endometrial cancer -: Anemia -: Hysterectomy with oophorectomy -: Thymectomy Psychosocial/ Personal History: Patient is . Has 1 child. - Family History Father -: Cancer Notes: colon Mother -: Stroke - Social History Alcohol use: No CD- Drugs: No Caffeine use: Yes Place of Residence: Home Review of Systems General: Weakness, Malaise, As per HPI Eyes: Unremarkable ENT: Unremarkable Respiratory: Unremarkable Cardiovascular: Light Headedness, As per HPI Gastrointestinal: As per HPI Genitourinary: Unremarkable Musculoskeletal: As per HPI Integumentary: Unremarkable Neurological: Unremarkable Lymphatics: Unremarkable Physical Examination - Physical Exam General: Alert, In no apparent distress, Oriented x3, Cooperative HEENT: Atraumatic, Normocephalic, Other (Dry mucous membranes), EOMI Neck: Supple, No Thyromegaly Respiratory: Clear to auscultation bilaterally, Normal air movement Cardiovascular: Normal pulses, Regular rate/rhythm Gastrointestinal: Normal bowel sounds, Soft and benign, Non-distended, No tenderness, No masses, No rebound, No guarding Musculoskeletal: No erythema, No tenderness, No warmth Integumentary: No tenderness/swelling, No erythema, No warmth, No cyanosis Neurological: Normal speech, Normal strength at 5/5 x4 extr, Normal tone, Normal affect - Studies Laboratory Data (last 24 hrs) 10/10/19 09:07: WBC 12.2 H, Hgb 10.6 L, Hct 32.2 L, Plt Count 212 10/10/19 09:07: Sodium 137, Potassium 4.4, BUN 19 H, Creatinine 1.24, Glucose 82, Magnesium 1.6 L D, Total Bilirubin 0.9, AST 28, ALT 7 L, Alkaline Phosphatase 138 H Assessment and Plan - Plan Impression: Presyncope suspect related to acute renal injury with dehydration and orthostatic hypotension with poor oral intake Mild protein malnutrition Orthostatic hypotension with history of hypertension Hyperlipidemia History of CVA 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 Suspect poor oral intake causing presyncopal episode with orthostatic hypotension and acute renal injury. Will hold her Arb inhibitor blood pressure medication. Will continue with IV fluids. Will monit or electrolytes. Electrolyte protocol in place. Will recheck orthostatics tomorrow. Will have physical therapy and occupational therapy assess evaluation. Will also order echocardiogram, carotid Doppler, and MRI to further evaluate. Will have social service liaison evaluate for home health and physical therapy at discharge. Patient may also require caregiver services and Meals on wheels at discharge. DVT prophylaxis in place. Anticipate improvement over the next 24 hr. Will reassess tomorrow for possible discharge. Mild protein malnutrition: Encourage oral intake. Will consult dietary to evaluate and treat daily needs. Orthostatic hypotension with history of hypertension: Hold Arb inhibitor blood pressure medication. Will monitor this closely. May need to discontinue medication at discharge. Hyperlipidemia: Obtain and possibly restart medication. Will check fasting lipid panel in the morning. History of CVA: Initial CT head unremarkable. Continue with above recommendation. 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 She is had treatments in the past. Patient desires no further chemotherapy or treatment. Advanced directives address in detail. Patient wishes to be DNR. Discharge Plan: Home Plan to discharge in: 24 Hours - Advance Directives Does patient have a Living Will: No Does patient have a Durable POA for Healthcare: No - Code Status/Comfort Care Code Status Assessed: Yes (Patient is DNR) Time Spent Managing Pts Care (In Minutes): 55
[2019-10-10] MEDS ORDERED: ONDANSETRON 4 MG/2 ML VIAL IV PRN (15:43)
[2019-10-10] MEDS ORDERED: ACETAMINOPHEN 500 MG TAB PO PRN (15:43)
[2019-10-10 16:09] VITALS: BMI 23.0
[2019-10-10] MEDS: NA CHLORIDE 0.9% 1,000 ML IV SCH (17:00)
[2019-10-10] MEDS: ENOXAPARIN 40 MG/0.4 ML SQ SCH (17:00)
[2019-10-10 19:30] LABS: Troponin I 0.02 ng/mL (0.0-0.045)
--- NOTE | 2019-10-10 19:46 | RAD REPORT ---
EXAM DESCRIPTION: USCarotid Artery Bilateral10/10/2019 7:22 pm CLINICAL HISTORY: syncope COMPARISON: 2015 FINDINGS: The velocity of the right internal carotid artery equals 91 cm/sec. The right ICA/CCA rati o 1 The velocity of the left internal carotid artery equals 105 cm/sec. The left ICA/CCA ratio .8 Mild plaque is present within the carotid arteries. The vertebral arteries demonstrate antegrade flow IMPRESSION: Mild plaque within the carotid arteries without evidence of a hemodynamically significan t stenosis NASCET criteria used. Mild 0-49% stenosis Moderate 50-69% stenosis Severe 70-99% stenosis
[2019-10-10] MEDS: ENSURE HIGH PROTEIN 237 ML CAN PO SCH (21:00)
[2019-10-10] MEDS: FAMOTIDINE 20 MG TAB PO SCH (22:22)
[2019-10-11 03:24] LABS: Absolute Lymphocytes (CBC) 0.4 K/uL (0.7-4.9); Basophils % 0.3 % (0-1.3); CKMB Creatine Kinase MB 1.8 ng/mL (0.3-3.6); Creatine Phosphokinase 148 U/L (26-192); Hematocrit 27.5 % (36.0-45.0); Lymphocytes % 3.6 % (15.3-44.8); MPV 6.8 fL (7.6-11.3); RBC Red Blood Cell Count 3.11 M/uL (3.86-4.86); Troponin I < 0.02 ng/mL (0.0-0.045)
[2019-10-11 04:19] LABS: Magnesium 1.8 mg/dL (1.8-2.4); Potassium 3.8 mmol/L (3.5-5.1); Thyroid Stimulating Hormone 0.677 uIU/mL (0.360-3.740)
[2019-10-11] MEDS: NA CHLORIDE 0.9% 1,000 ML IV SCH ×2 (04:27→13:42)
[2019-10-11] MEDS ORDERED: MAGNESIUM SULFATE 1 gm IVPB 1 GM/100 ML BAG IV ONE (05:55)
[2019-10-11] MEDS ORDERED: POTASSIUM 25 MEQ EFFERV TAB PO ONE (05:56)
--- NOTE | 2019-10-11 06:26 | EKG ---
Test Date: 2019-10-10 Test Time: 08:39:03 Sales Development Manager: MERRILL MEASUREMENT RESULTS: Intervals: Rate: 86 CO: 182 QRSD: 78 QT: 388 QTc: 464 [place]: P: 69 CO: 182 QRS: -39 T: 90 INTERPRETIVE STATEMENTS: Normal sinus rhythm Left axis deviation Inferior infarct, age undetermined Anterolateral infarct, age undetermined Abnormal ECG Compared to ECG 09/19/2019 21:52:01 Sinus tachycardia no longer present Myocardial infarct finding still present Electronically Signed On 10-11-19 06:24:08 CDT by Roger Stokes
[2019-10-11 08:36] VITALS: O2SAT 98
[2019-10-11] MEDS ORDERED: FOLIC ACID 1 MG TABLET PO SCH (09:00)
[2019-10-11] MEDS: FAMOTIDINE 20 MG TAB PO SCH (09:00)
[2019-10-11] MEDS: ENOXAPARIN 40 MG/0.4 ML SQ SCH (09:00)
[2019-10-11] MEDS ORDERED: ASPIRIN EC 81 MG TAB PO SCH (09:00)
[2019-10-11] MEDS ORDERED: THIAMINE HCL 100 MG TABLET PO SCH (09:00)
[2019-10-11] MEDS: ENSURE HIGH PROTEIN 237 ML CAN PO SCH ×2 (10:06→13:20)
--- NOTE | 2019-10-11 15:03 | P.DS ---
Admission Date: 10/10/19 Discharge Date: 10/11/19 Primary Care Provider: Dr. Stallworth Disposition: DC HOME/HOME HEALTH CARE Discharge Condition: GOOD Reason for Admission: Presyncope Consultations: none Procedures: CT Head: FINDINGS: No intracranial hemorrhage, mass, edema or shift of mid-line structures. No acute cortical based infarction. Patient has prominent atrophy and chronic ischemic changes that match the 2019 comparison. No abnormal extra- axial fluid collections. Ventricles are in proportion to the volume loss. Mastoid air cells and visualized portions of the paranasal sinuses are clear. No acute bony findings. IMPRESSION: Prominent atrophy and chronic ischemic change matching comparison. No hemorrhage or acute intracranial finding seen. Carotid doppler: FINDINGS: The velocity of the right internal carotid artery equals 91 cm/sec. The right ICA/CCA ratio 1 The velocity of the left internal carotid artery equals 105 cm/sec. The left ICA/CCA ratio .8 Mild plaque is present within the carotid arteries. 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 Patient presented to the emergency room after she was feeling tired and weak. She reports that she felt like she was going to faint. Her called EMS. EMS arrived and noted a blood pressure systolic of around 69. The patient was given 250 bolus of normal saline. Patient denied any chest pain, shortness of breath. Patient also denied any fever, chills, cough, diarrhea at this time. She does report that last week she had to take a bowel prep in preparation for colonoscopy. Since that time she has felt fatigued and tired. In the emergency room she was evaluated. After 250 cc bolus of normal saline given by EMS, blood pressure was Re checked in the emergency room. Vital signs have remained stable. White count 12.2, hemoglobin 10.6. Platelet count of 212. Sodium 137, potassium 4.4, BUN of 19, creatinine 1.24. GFR 42. Glucose 82. Troponin 0.02. Chest x-ray unremarkable. CT head unremarkable. Patient was admitted for further evaluation and observation. When I saw the patient ER, patient appeared dehydrated. She did not appear septic. Patient stable this time. Hospital Course: Patient presented with presyncope related to acute renal injury secondary to dehydration/orthostatic hypotension with poor oral intake and medication. CT scan unremarkable. Carotid Doppler unremarkable. Patient was given IV fluids and encourage oral intake. During the course her stay the patient did well. Patient was evaluated by physical therapy. Home health and physical therapy was recommended. Patient encouraged to eat more as the patient has some mild protein malnutrition. This was discussed in detail with the patient and . reports patient has not been eating well. At discharge patient will continue with oral intake including Ensure supplementation 3 times a day to help with her intake. Patient will also continue with thiamine 100 mg daily and folic acid 1 mg daily. Recommend to follow up with her PCP to further monitor and address. Patient will follow up with her PCP to arrange for home health and physical therapy. Patient with orthostatics hypotension. This may be related to above. Patient also with underlying hypertension. Will recommend to discontinue losartan at this time due to the acute renal injury. Patient will continue to monitor her blood pressure. Patient will start Norvasc 5 mg daily if blood pressure remains above 150/90. She is to hold her blood pressure if blood pressures below 120 systolic. Recommend to follow up with her PCP to further monitor and address. Patient with history of CVA. At discharge she will continue with aspirin 81 mg daily. 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 Patient may follow up with her oncologist to further address. Patient is considering treatment. She does not desire chemotherapy. Options should be addressed with the patient with oncology. Vital Signs/Physical Exam: Temp Pulse Resp BP Pulse Ox 99.0 F 67 17 140/53 L 96 10/11/19 12:00 10/11/19 12:00 10/11/19 12:00 10/11/19 12:10/11/19 12:00 General: Alert, In no apparent distress, Oriented x3, Cooperative HEENT: Atraumatic Neck: Supple Respiratory: Clear to auscultation bilaterally, Normal air movement Cardiovascular: Normal pulses, Regular rate/rhythm Gastrointestinal: Normal bowel sounds, Soft and benign, Non-distended, No tenderness, No masses, No rebound, No guarding Integumentary: No tenderness/swelling, No erythema, No warmth, No cyanosis Neurological: Normal speech, Normal strength at 5/5 x4 extr, Normal tone, Abnormal affect (mild depression) Laboratory Data at Discharge: WBC 10.4 K/uL (4.3-10.9) D 10/11/19 02:33 Hgb 9.3 g/dL (12.0-15.0) L 10/11/19 02:33 Hct 27.5 % (36.0-45.0) L 10/11/19 02:33 Plt Count 201 K/uL (152-406) 10/11/19 02:33 Sodium 139 mmol/L (136-145) 10/11/19 02:33 Potassium 3.8 mmol/L (3.5-5.1) 10/11/19 02:33 BUN 21 mg/dL (7-18) H 10/11/19 02:33 Creatinine 1.00 mg/dL (0.55-1.3) 10/11/19 02:33 Glucose 69 mg/dL (74-106) L 10/11/19 02:33 Magnesium 1.8 mg/dL (1.8-2.4) 10/11/19 02:33 Total Bilirubin 0.9 mg/dL (0.2-1.0) 10/10/19 09:07 AST 28 U/L (15-37) 10/10/19 09:07 ALT 7 U/L (12-78) L 10/10/19 09:07 Alkaline Phosphatase 138 U/L (45-117) H 10/10/19 09:07 Troponin I < 0.02 ng/mL (0.0-0.045) 10/11/19 02:33 Triglycerides 58 mg/dL (<150) 10/11/19 02:33 Cholesterol 79 mg/dL (<200) 10/11/19 02:33 HDL Cholesterol 44 mg/dL (40-60) 10/11/19 02:33 Cholesterol/HDL Ratio 1.80 10/11/19 02:33 Home Medications: Aspirin [Aspirin EC 81 MG] 81 mg PO DAILY #30 tablet. 12/10/15 Amlodipine Besylate [Norvasc] 2.5 mg PO DAILY #30 tablet 10/11/19 Ensure Enlive 237 ml PO TID #90 can 05/22/20 Folic Acid 1 mg PO DAILY #30 tablet 10/11/19 Thiamine HCl [Vitamin B-1*] 100 mg PO DAILY #30 tablet 10/11/19 New Medications: Ensure Enlive 237 ml PO TID #90 can Folic Acid 1 mg PO DAILY #30 tablet Amlodipine Besylate [Norvasc] 2.5 mg PO DAILY #30 tablet Thiamine HCl [Vitamin B-1*] 100 mg PO DAILY #30 tablet Patient Discharge Instructions: 1. Recommend follow up with PCP in 1 week to follow up this hospitalization. 2. Patient presented with presyncope related to acute renal injury secondary to dehydration/orthostatic hypotension with poor oral intake and medication. CT scan unremarkable. Carotid Doppler unremarkable. Patient was given IV fluids and encourage oral intake. During the course her stay the patient did well. Patient was evaluated by physical therapy. Home health and physical therapy was recommended. Patient encouraged to eat more as the patient has some mild protein malnutrition. This was discussed in detail with the patient and . reports patient has not been eating well. At discharge patient will continue with oral intake including Ensure supplementation 3 times a day to help with her intake. Patient will also continue with thiamine 100 mg daily and folic acid 1 mg daily. Recommend to follow up with her PCP to further monitor and address. Patient will follow up with her PCP to arrange for home health and physical therapy. 3. Patient with orthostatics hypotension. This may be related to above. Patient also with underlying hypertension. Will recommend to discontinue losartan at this time due to the acute renal injury. Patient will continue to monitor her blood pressure. Patient will start Norvasc 5 mg daily if blood pressure remains above 150/90. She is to hold her blood pressure if blood pressures below 120 systolic. Recommend to follow up with her PCP to further monitor and address. 4. Patient with history of CVA. At discharge she will continue with aspirin 81 mg daily. 5. 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 Patient may follow up with her oncologist to further address. Patient is considering treatment. She does not desire chemotherapy. Options s hould be addressed with the patient with oncology. Diet: AHA Activity: Fall precautions Time spent managing pt's care (in minutes): 55
[2019-10-11 16:16] VITALS: BP 148/65; TEMP 99.1
[2019-10-11] MEDS ORDERED: ENSURE ENLIVE 237 ML CAN PO SCH (21:00)
== END 2019-10-11 16:32 | disposition home health service (06) ==
LOC: ER 07:43 → ERHOLD 13:05 → 2ND 15:23
PROVIDERS: ADMIT Family Medicine; ATTEND Family Medicine
DX: I95.1 Orthostatic hypotension (principal); R55 Syncope and collapse; N17.9 Acute kidney failure, unspecified; E86.0 Dehydration; E44.1 Mild protein-calorie malnutrition; I10 Essential (primary) hypertension; E78.5 Hyperlipidemia, unspecified; C54.1 Malignant neoplasm of endometrium; C79.51 Secondary malignant neoplasm of bone; Z86.73 Personal history of transient ischemic attack (TIA), and cerebral infarction without residual deficits; Z68.23 Body mass index [BMI] 23.0-23.9, adult
CPT/HCPCS: 96365; 93005; 87040 ×2; 85025 ×2; 80048 ×2; 36415; 83735 ×2; 82550 ×2; 80061; 82947; 80076; 84443; 81003; 84484 ×3; 82553 ×2; 84439; 70450; 71045; 93880; 97112; 97116; 97161; 97530 ×2; 99285; 96366; J1650; J3475; J0696; J7030 ×3; G0378 ×3